=== PATIENT | male | born 1940 | race Caucasian/White ===

== ENCOUNTER 2016-10-17 15:48 | Inpatient (IN) | payer MEDICARE, BC ==
[~2016-10-17] VITALS: Ht 172.7 cm; Wt 80.1 kg
--- NOTE | ~2016-10-17 | OP ---
PATIENT NAME: JACKELINE GARZA MEDICAL RECORD: [id number] :40 LOCATION:D.M2 D.2126 ADMISSION DATE:10/17/16 SURGEON: GER SALAZAR MD DATE OF OPERATION: 11/01/2016 PREOPERATIVE DIAGNOSES: 1. Yxmrx-hn-hondqkc kidney disease. 2. Chronic obstructive pulmonary disease. 3. Hyperlipidemia. 4. Hypertension. 5. Benign prostatic hypertrophy. 6. Post-stroke pneumonia. 7. Congestive heart failure, undifferentiated. POSTOPERATIVE DIAGNOSES: 1. Iohbc-ef-mqqmemo kidney disease. 2. Chronic obstructive pulmonary disease. 3. Hyperlipidemia. 4. Hypertension. 5. Benign prostatic hypertrophy. 6. Post-stroke pneumonia. 7. Congestive heart failure, undifferentiated. PROCEDURES: 1. Right IJ 19 cm HemoSplit catheter placement with fluoroscopic interpretation. 2. Exchange of left IJ Trialysis catheter for central venous line. SURGEON: Ger Salazar MD REPORT OF PROCEDURE: The patient's neck and chest were prepped and draped in sterile fashion. Using ultrasound guidance, a needle was used to cannulate the right internal jugular vein. The guidewire was advanced with ease. Fluoro was used to note that the wire was in good position in the venous system. A skin incision was made on the right lateral chest. The HemoSplit catheter was tunneled between this opening and the wire exit site. The multiple dilators were placed over the wire under fluoroscopic guidance followed by the final dilator trocar device. The dilator and wire were removed and the catheter tips were advanced through the trocar with ease. The trocar was removed and we backed the catheter up until resting in good position at the right atrial superior vena caval junction. The catheter aspirated nonpulsatile dark blood and flushed easily in both ports with heparinized saline followed by 2 mL each of 1000 per cc heparin flush. This was then sutured into place with 3-0 Prolene and the skin incisions were closed with subcutaneous 5-0 Monocryl. We then approached the left neck with indwelling Trialysis catheter. The sutures were removed and the distal aspect of the catheter was transected. A guidewire was advanced with ease through this and the catheter was removed. A new central venous line was inserted over the wire and the wire was removed. This line was flush with normal saline and had good blood return and flushed easily with heparinized saline. This was then sutured into place with a 3-0 Prolene and dressed appropriately. COMPLICATIONS: None. CONDITION: Stable. OPERATIVE REPORT [id number] JACKELINE GARZA ANESTHESIA: General endotracheal. BLOOD LOSS: 30 mL. TRANSINT:[id number] Voice Confirmation ID: [id number] DOCUMENT ID: [id number] GER SALAZAR MD CC: [id number] DICTATION DATE: 11/01/16 1148 HOME CARE ADMINISTRATOR: 11/01/16 190 ADM IN [id number] [place] [address]
--- NOTE | ~2016-10-17 | CN ---
PATIENT NAME:JACKELINE TOMLINSON MEDICAL RECORD: [id number] : 40 LOCATION:D.[place] D.2126 ADMIT DATE: 10/17/16 ACCOUNT: [id number] CONSULTING PHYSICIAN: SEN GAMEZ MD REFERRING PHYSICIAN: GREGORIO LOBATO MD DATE OF CONSULTATION: 10/18/2016 CONSULT REQUESTING PHYSICIAN: Gregorio Lobato MD. REASON FOR CONSULTATION: Shortness of breath. HISTORY OF PRESENT ILLNESS: Mr. Tomlinson is a 76-year-old gentleman who was transferred from [facility] for worsening shortness of breath and renal failure. According to the , he was admitted over there for worsening shortness of breath. Workup showed that he is in qcjhd-as-tbvukxs renal failure as well as his hemoglobin was 5.2. He was transfused with 2 units of blood and also, some diuresis, but the patient was not getting any better. Also, he has worsening shortness of breath. He has orthopnea, PND and worsening swelling of the lower extremities. He was also given a dose of vancomycin and Zosyn. Methylprednisolone 125 mg IV times 1. REVIEW OF SYSTEMS: Mainly in the history of present illness. PAST MEDICAL HISTORY: 1. Hypertension. 2. Hyperlipidemia. 3. Stage III chronic kidney disease. 4. History of CVA with memory loss. 5. History of glaucoma. 6. Legally blind. 7. Depression. 8. Iron deficiency anemia. 9. History of bleeding polyps. PAST SURGICAL HISTORY: 1. History of right carotid endarterectomy. 2. Left eye retinal surgery. ALLERGIES: There are no known drug allergies. PRESENT MEDICATIONS: [employer] Communication is reviewed. PERSONAL AND SOCIAL HISTORY: The patient was an active smoker until June this year. He is , living with his . He is alcohol drinking. FAMILY HISTORY: Noncontributory. PHYSICAL EXAMINATION: GENERAL: Now, the patient is lying comfortably, but he is in mild respiratory distress. VITAL SIGNS: The blood pressure is 143/67, pulse is 59, respirations 18, temperature 98.8 and SPO2 is 97% on 3 liter nasal cannula. HEENT: Conjunctivae are pink, sclerae nonicteric. NECK: Supple. No JVD. CHEST: The chest excursion is minimal on both sides. There are bilateral CONSULT REPORT [id number] JACKELINE TOMLINSON crackles, wheeze on forceful expiration. HEART: Rate and rhythm regular. There is a II/ systolic murmur. ABDOMEN: Soft. Bowel sounds present. No hepatosplenomegaly. RECTAL: Deferred. EXTREMITIES: No cyanosis, no clubbing. There is 3+ pedal edema. CENTRAL NERVOUS SYSTEM: The patient is legally blind; otherwise, he is awake and alert. CHEST RADIOGRAPH: There is bilateral pleural effusion. There is pulmonary edema. There is lower lobe infiltrate, left worse than the right. LABORATORY DATA: CBC: The WBC is 18.9, hemoglobin 9.3, hematocrit 28.7, the platelet count is 348. Chemistry: Sodium is 127, potassium is 5, BUN is 76 and creatinine is 4.3. IMPRESSION: 1. Acute hypoxic respiratory failure. 2. Left lower pneumonia, possible community-acquired pneumonia. 3. Bilateral pleural effusion. 4. Pulmonary edema, most likely congestive heart failure, possible fluid overload with associated anemia and cywpk-qw-gpwyftq renal failure. 5. Paeve-rw-quozckh renal failure secondary to acute tubular necrosis. 6. Chronic obstructive pulmonary disease, acute exacerbation. 7. Lower gastrointestinal bleed. 8. Anemia secondary to gastrointestinal bleed. RECOMMENDATION: 1. I will start him on Rocephin and Zithromax IV. 2. Methylprednisolone low dose 40 mg t.i.d. Continue Brovana and budesonide nebulizer, albuterol and ipratropium nebulizer. 3. Follow up labs and chest radiograph. 4. Diuresis per nephrology as well as Dr. Hernandes. Congestive heart failure workup by Dr. Hernandes. Dr. Lobato, once again thank you for involving me in the care of Mr. Tomlinson. The critical care time is 45 minutes. TRANSINT:[id number] Voice Confirmation ID: [id number] DOCUMENT ID: [id number] SEN GAMEZ MD CC: GREGORIO LOBATO MD [id number] DICTATION DATE: 10/18/16 135 URINALYSIS TECHNICIAN: 10/18/162205 ADM IN [id number] [place] [id number]
[~2016-10-17 15:48] MED LIST: ASPIRIN EC81 MG PO; BENTYL10 MG PO; CELEXA20 MG PO; HYDROCHLOROTHIA25 MG PO; NORVASC5 MG PO; PEPCID AC20 MG PO; PERSERVISION; PLAVIX75 MG PO; REFRESH OPTIVE; TIMOLOL MALEATE15 ML EACH EYE; TOPROL XL25 MG PO; ZOCOR10 MG PO; [UNRECOGNIZED DRUG - OTHER]
--- NOTE | 2016-10-17 16:00 | NUR ---
RECIVED TO ROOM PER AMBULANCE FROM [facility].
[2016-10-17] MEDS ORDERED: COSOPT EYE DROPS5 ML RIGHT EYE (16:04)
[2016-10-17] MEDS ORDERED: IPRAT-ALBUT 0.5-3 ML UPD ×2 (16:05→16:08)
[2016-10-17] MEDS ORDERED: SYMBICORT 80-10.2 GM INH (16:05)
[2016-10-17] MEDS ORDERED: XANAX0.25 MG PO (16:06)
[2016-10-17] MEDS ORDERED: SOLU-MEDRO40 MG/1 M1 IV (16:06)
[2016-10-17] MEDS ORDERED: COREG12.5 MG PO (16:07)
[2016-10-17] MEDS ORDERED: PROTONIX40 MG PO (16:08)
[2016-10-17] MEDS ORDERED: MAXIFED DM LIQ473 ML PO (16:08)
[2016-10-17] MEDS ORDERED: VANCOMYCIN HCL125 MG PO (16:12)
[2016-10-17] MEDS ORDERED: ZITHROMAX 500M500 MG IV (16:12)
[2016-10-17] MEDS ORDERED: ZOSYN 2.25 GM2.25 G1 IV (16:12)
[2016-10-17 16:26] VITALS: BP 157/67
[2016-10-17 16:40] VITALS: BMI 27.1
--- NOTE | 2016-10-17 17:42 | NUR ---
FAMILY AT SIDE. WITHOUT CHANGES OR DISTRESS NOTED
[2016-10-17 18:41] LABS: BASOPHILS 0.1 % (0-2); EOSINOPHILS 0 % (0-7); HEMATOCRIT 28.5 % (42.0-54.0); HEMOGLOBIN 9.2 g/dL (13.5-17.5); IMMATURE GRANULOCYTES 0.4 % (0-5); LYMPHOCYTES 6.2 % (15-50); MCH 25.7 pg (26.0-34.0); MCHC 32.3 g/dL (31.0-37.0); MCV 79.6 fL (80.0-100.0); MEAN PLATELET VOLUME 9.9 fL (7.4-10.4); MONOCYTES 2.7 % (2-11); NEUTROPHILS 90.6 % (40-80); PLATELET COUNT 335 10x3/uL (130-400); RBC 3.58 10x6/uL (4.20-6.10); WBC 12.8 10x3/uL (4.8-10.8)
[2016-10-17 18:46] LABS: ANION GAP 20.2 mmol/L (8-16); CALCIUM 8.5 mg/dL (8.5-10.1); CARBON DIOXIDE 17.8 mmol/L (21.0-32.0); CREATININE - SERUM 4.3 mg/dL (0.6-1.3)
[2016-10-17 19:00] VITALS: BP 152/66
--- NOTE | 2016-10-17 19:20 | NUR ---
RECEIVED REPORT FROM DAY NURSE, AT BEDSIDE, BED IS LOW, SRX2, PT DENIES ANY NEEDS AT THIS TIME, WILL CONTINUE TO MONITOR, CALL LIGHT IN REACH
[2016-10-17 23:00] VITALS: BP 156/67
--- NOTE | 2016-10-18 04:35 | NUR ---
ASSESSMENT COMPLETE, SEE FLOWSHEET, PT SLEEPING, AT BEDSIDE, BED IS LOW, SRX2, CALL LIGHT IN REACH, WILL MONITOR
--- NOTE | 2016-10-18 05:37 | NUR ---
WILL CONTINUE WITH PLAN OF CARE, CALL LIGHT IN REACH.
[2016-10-18 05:44] LABS: BASOPHILS 0.1 % (0-2); EOSINOPHILS 0 % (0-7); HEMATOCRIT 28.7 % (42.0-54.0); HEMOGLOBIN 9.3 g/dL (13.5-17.5); IMMATURE GRANULOCYTES 0.5 % (0-5); LYMPHOCYTES 4.5 % (15-50); MCH 25.5 pg (26.0-34.0); MCHC 32.4 g/dL (31.0-37.0); MCV 78.8 fL (80.0-100.0); MEAN PLATELET VOLUME 9.8 fL (7.4-10.4); MONOCYTES 4.3 % (2-11); NEUTROPHILS 90.6 % (40-80); PLATELET COUNT 348 10x3/uL (130-400); RBC 3.64 10x6/uL (4.20-6.10); RDW 21.5 % (11.5-14.5)
[2016-10-18 05:48] LABS: APPEARANCE HAZY (CLEAR); BILIRUBIN NEGATIVE (NEGATIVE); COLOR YELLOW (YELLOW); GLUCOSE NEGATIVE (NEGATIVE); KETONE NEGATIVE (NEGATIVE); LEUKOCYTE ESTERASE NEGATIVE (NEGATIVE); NITRITE NEGATIVE (NEGATIVE); PROTEIN 1+ mg/dL (NEGATIVE); RED CELLS - URINE 0-5 /hpf (0-5); UROBILINOGEN NORMAL (NORMAL); WHITE CELLS - URINE 0-5 /hpf (0-5)
[2016-10-18 05:48] LABS: WBC 18.9 10x3/uL (4.8-10.8)
[2016-10-18 05:49] LABS: BACTERIA NONE SEEN /hpf (NONE SEEN); EPITHELIAL CELLS RARE /hpf (0-5)
[2016-10-18 05:54] LABS: POTASSIUM - URINE 42.6 MMOL/L (12.0-62.0); PRO/CRE RATIO URINE 1.9 mg/g; PROTEIN - URINE 130.1 mg/dL (0.0-11.9)
[2016-10-18 06:05] LABS: % SATURATION 2 % (15-55); IRON 10 ug/dl (35-150); TOTAL IRON BIND CAPACITY 372 ug/dl (260-445); UNSAT IRON BIND CAPACITY 362 ug/dl (150-375)
[2016-10-18 06:24] LABS: ANION GAP 19.5 mmol/L (8-16); CALCIUM 8.4 mg/dL (8.5-10.1); CARBON DIOXIDE 17.6 mmol/L (21.0-32.0); CREATININE - SERUM 4.6 mg/dL (0.6-1.3); MAGNESIUM - SERUM 2.3 mg/dL (1.8-2.4); PHOSPHOROUS 8.4 mg/dL (2.5-4.9); POTASSIUM - SERUM 5.1 mmol/L (3.5-5.1); T4 THYROXIN - FREE 0.97 ng/dL (0.76-1.46); THYROID STIMULATING HORMONE 0.75 uIU/mL (0.36-3.74)
[2016-10-18 06:42] VITALS: BP 158/68
--- NOTE | 2016-10-18 07:36 | HP ---
PATIENT: JACKELINE GARZA MEDICAL RECORD: [id number] ACCOUNT: [id number] LOCATION:[address] : 40 ADMISSION DATE: 10/17/16 HISTORY AND PHYSICAL EXAMINATION REASON FOR ADMISSION: Transfer from [facility] for acute renal insufficiency, anemia, symptomatic, and congestive heart failure. HISTORY OF PRESENT ILLNESS: The patient is a 76-year-old male whose states was in fairly good health until June. He was apparently admitted to [facility] at that time for what appear to be COPD and some "heart problems." She has little information on that except that he was placed on updrafts at home after that. He has seen his doctor, Dr. Antonio, recently and was noted to be anemic and had heme-positive stool. He was referred to general surgeon, Dr. Cheatham, who performed an EGD approximately a month ago at that hospital showing "several reasons for bleeding." He was placed on a PPI and Carafate 4 times daily. He was scheduled to have a repeat endoscopy. Stools remained positive and he apparently was admitted to the hospital because his hemoglobin had dropped to 5.2. He was admitted and transfused 3 units of packed cells, but developed some volume overload. The referring physician states that his BNP had elevated to 30,000. He was giving him Lasix and Bumex. His creatinine went from 1.8 up to 3.3, which resulted in his transfer today. He was also put on vancomycin and Zosyn for questionable pneumonia and IV Solu-Medrol for COPD exacerbation, but he has been wheezing worse. His blood gas showed a pH of 7.3 and a pO2 in the mid 60s on 2 liters. His said he has never had a colonoscopy. He denies chest pain. He denies sputum production. PAST MEDICAL HISTORY: Stroke times 3 with carotid occlusive disease, post-stroke dementia, macular degeneration, legally blind on his left eye with minimal vision in his right eye, history of cataracts, glaucoma, COPD, recently diagnosed; recent acute renal insufficiency, hyperlipidemia and hypertension. PAST SURGICAL HISTORY: He had surgery on his left eye for macular degeneration that resulted in him becoming blind. He had a right carotid endarterectomy remotely, but his left carotid was so stenosed they would not operate and placed him on Plavix. ALLERGIES: None mentioned. SOCIAL HISTORY: He is to his second . 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 He does not drink alcohol. FAMILY HISTORY: Parents history unknown, they of old age. One brother had cancer of the lung, he was a smoker. CURRENT MEDICATIONS: Amlodipine 10 mg a day, dorzolamide hydrochloride/timolol 2%/0.5% one drop right eye b.i.d., Symbicort 80 two puffs b.i.d., DuoNeb updrafts 4 times daily, methylprednisolone ____ mg IV piggyback q.8 hours, Xanax 0.25 mg bedtime p.r.n. sleep, Coreg 12.5 mg b.i.d. with meals, guaifenesin cough syrup p.r.n., Protonix 40 mg p.o. daily, vancomycin 125 mg p.o. daily, Zosyn 2.25 mg IV piggyback q.8 hours, Zithromax 500 mg IV piggyback q.24 hours, timolol maleate 0.25% ophthalmic drops 1 drop each eye b.i.d. Discontinued medications were simvastatin, metoprolol, Plavix, famotidine, HISTORY AND PHYSICAL [id number] JACKELINE GARZA hydrochlorothiazide, aspirin, citalopram and Bentyl. REVIEW OF SYSTEMS: GENERAL: He has been fatigued since being in the hospital and several weeks prior to. He denies fever. HEENT: Legally blind left eye, poor vision in the right, he can see objects only. Denies sinus congestion. Some hearing loss. RESPIRATORY: Increasing shortness of breath with nonproductive cough in the last week. CARDIAC: Denies chest pain, claudication. He does have increasing edema noted in the hospital recently. Prior to hospitalization, he said he did not have that. GASTROINTESTINAL: No nausea, vomiting, change in stools, blood per rectum, or dysphagia. GENITOURINARY: He says he has had nocturia 2-3 nightly for the last several months. Denies history of hematuria or kidney disease. ENDOCRINE: Denies polyuria, polydipsia, heat or cold intolerance. NEUROLOGIC: Remote history of stroke, which caused him to have trouble with memory, but no motor deficits. MUSCULOSKELETAL: He has some arthritis in his shoulders and hips. PSYCHIATRIC: Denies depressed mood, but has been depressed in the past. LABORATORY DATA: [place] labs are currently pending. Reported lab today from [facility] showed a creatinine of 3.3, BUN of 60 and hemoglobin of 9. Chest x-ray showed mild central, peripheral pulmonary edema with patchy alveolar densities in the lower lobes, small pleural effusions and COPD changes. Sodium was 128. Liver functions were normal. Lactic acid 1.9. ProBNP reportedly 30,000. Urinalysis negative. Blood type A positive. ASSESSMENT: 1. Congestive heart failure. 2. Acute renal insufficiency. 3. Anemia of upper gastrointestinal blood loss. 4. Possible pneumonia. 5. Respiratory failure. 6. Hypertension. 7. Benign prostatic hypertrophy. 8. Macular degeneration. 9. Carotid occlusive disease. 10. Remote cerebrovascular accident. PLAN: The patient will be admitted to the hospital for renal consultation. We will get new database, labs and chest x-ray. Apparently, the patient has had an echocardiogram done yesterday at [facility], hope to obtain that reading and if not, we will repeat here. Cardiology has been consulted as well. TRANSINT:[id number] Voice Confirmation ID: [id number] DOCUMENT ID: [id number] HISTORY AND PHYSICAL [id number] JACKELINE GARZA TIMOTHY MD at 0736 CC: [id number] DICTATION DATE: 10/17/161757 INSOLE FILLER: 10/17/162052 ADM IN [facility] [address] [place] [address]
--- NOTE | 2016-10-18 07:47 | NUR ---
AM ROUNDING- RECEIVED REPORT FROM LEGAL MEDIATOR NURSE JERZY. PT IS CURRENTLY SITTING UP ON SIDE OF BED RECEIVING BREATHING TREATMENT. IS AT BEDSIDE. ON MONITOR SHOWING SR, HR 80. ON 02 AT 3L VIA NC. IV SEEN TO LEFT HAND THAT IS CURRENTLY SALINE LOCKED. AARON CATHETER SEEN WITH YELLOW URINE. PER REPORT PT IS BLIND IN LEFT EYE AND CANNOT SEE IN RIGHT EYE. PT IS ALERT AND ORIENTED. NO NEED AT CURRENT TIME. WILL CONTINUE TO MONITOR AND CONTINUE WITH PLAN OF CARE.
[2016-10-18 07:56] VITALS: BP 162/77
[2016-10-18 11:59] VITALS: Ht 172.7 cm; Wt 80.1 kg
[2016-10-18 12:38] VITALS: BP 143/67
[2016-10-18 15:42] VITALS: BP 143/71
--- NOTE | 2016-10-18 17:20 | NUR ---
PT IS GLEN SITTING UP ON SIDE OF BED SPEAKING WITH DR. WU. IS AT BEDSIDE. NO NEED AT CURRENT TIME. WILL CONTINUE TO MONITOR.
--- NOTE | 2016-10-18 17:41 | NUR ---
BUMEX DRIP STARTED ORDERED BY DR. WU.
--- NOTE | 2016-10-18 18:06 | NUR ---
REMOVED AARON CATHETER WITH CATH TIP INTACT, PULLED OUT 8CC OUT OF BALLOON SYRINGE. ATTEMPTED TO RE-INSERT AARON CATHETER X2 TIMES WITH ASSISTANCE FROM DARSHAN VICK AND SUMAYA OLEARY. WILL CALL AND SEE ABOUT GETTING COUDE CATHETER. PT STATES HE NEEDS TO USE BATHROOM NOW. WILL CONTINUE TO MONITOR.
--- NOTE | 2016-10-18 18:13 | NUR ---
CALLED BILINGUAL EXECUTIVE ASSISTANT AND SPOKE YAMIL. INFORMED YAMIL THAT I NEEDED COUDE CATHETER 14F. YAMIL STATES SHE WILL SEE IF SHE CAN FIND ONE.
--- NOTE | 2016-10-18 19:04 | NUR ---
DID BLADDER SCAN ON PT AND BLADDER SCAN RESULTED WITH NO URINE IN BLADDER (0ML). WILL CONTINUE TO MONITOR.
--- NOTE | 2016-10-18 19:09 | NUR ---
DID BLADDER SCAN ON PT AND BLADDER SCAN SHOWS PT HAS 0ML.
--- NOTE | 2016-10-18 19:41 | NUR ---
RECEIVED REPORT, PT SITTING ON SIDE OF BED, AT BEDSIDE, CALL LIGHT IN REACH, ASK PT ABOUT AARON HE SAID WILL TRY AGAIN LATER, EXPLAIN THE IMPORTANT OF AARON, HE WILL USE URINAL UNTIL AARON IS PLACED
[2016-10-18 20:21] VITALS: BP 137/65
--- NOTE | 2016-10-18 23:55 | NUR ---
18F AARON CATHETER INSERTED AT THIS TIME. PT TOLERATED WELL. NOW BACK AT BEDSIDE. URINE OUTPUT WAS CLEAR YELLOW WITH INITIAL OUTPUT OF 100CC'S. CPOC/MONITORING OUTPUT.
[2016-10-19 00:28] VITALS: BP 163/82
[2016-10-19 04:13] VITALS: BP 143/68
--- NOTE | 2016-10-19 04:30 | NUR ---
ASSESSMENT COMPLETE, SEE FLOWSHEET, AT BEDSIDE, CALL LIGHT IN REACH, WILL CONTINUE PLAN OF CARE
[2016-10-19 05:58] LABS: BASOPHILS 0 % (0-2); EOSINOPHILS 0 % (0-7); HEMATOCRIT 28.6 % (42.0-54.0); HEMOGLOBIN 9.2 g/dL (13.5-17.5); IMMATURE GRANULOCYTES 0.4 % (0-5); LYMPHOCYTES 2.3 % (15-50); MCH 25.5 pg (26.0-34.0); MCHC 32.2 g/dL (31.0-37.0); MCV 79.2 fL (80.0-100.0); MEAN PLATELET VOLUME 10.4 fL (7.4-10.4); MONOCYTES 1.4 % (2-11); NEUTROPHILS 95.9 % (40-80); PLATELET COUNT 344 10x3/uL (130-400); RBC 3.61 10x6/uL (4.20-6.10); WBC 17.4 10x3/uL (4.8-10.8)
[2016-10-19 06:16] LABS: ANION GAP 23.5 mmol/L (8-16); CALCIUM 8.4 mg/dL (8.5-10.1); CARBON DIOXIDE 14.1 mmol/L (21.0-32.0); POTASSIUM - SERUM 5.6 mmol/L (3.5-5.1)
--- NOTE | 2016-10-19 07:28 | NUR ---
AM ROUNDING- RECEIVED REPORT FROM DIE CAST DIE MAKER NURSE JERZY. PT IS CURRENTLY LAYING IN BED ON BACK RECEIVING A BREATHING TX. IS AT BEDSIDE. ON MONITOR SHOWING SR, HR 88. ON 02 AT 3L VIA NC. IV SEEN TO RIGHT AC THAT HAS BUMEX RUNNING AT 10CC. PT IS BLIND IN LEFT EYE AND HAS POOR EYESIGHT IN RIGHT EYE. NO NEED AT CURRENT TIME. WILL CONTINUE TO MONITOR AND CONTINUE WITH PLAN OF CARE.
[2016-10-19 08:36] VITALS: BP 142/64
[2016-10-19 11:28] VITALS: BP 147/72
--- NOTE | 2016-10-19 13:07 | NUR ---
CALLED PHARMACY TO SEE ABOUT BUMEX BEING COMPATIBLE WITH ZITHROMAX. LIZANDRO FROM PHARMACY STATES THEY ARE COMPATIBLE.
--- NOTE | 2016-10-19 15:07 | NUR ---
PT IS RESTING IN BED. AND GUEST AT BEDSIDE. PT DENIES ANY NEED AT CURRENT TIME. WILL CONTINUE TO MONITOR.
[2016-10-19 17:04] VITALS: BP 144/62
--- NOTE | 2016-10-19 17:32 | NUR ---
PT IS CURRENTLY SITTING UP ON SIDE OF BED. ASKED PT IF HE ATE DINNER, PT REPLIED "NO I WASN'T HUNGRY". IS AT BEDSIDE. NO NEED AT CURRENT TIME. WILL CONTINUE TO MONITOR.
[2016-10-19 17:52] LABS: CALCIUM 8.2 mg/dL (8.5-10.1); CARBON DIOXIDE 15.4 mmol/L (21.0-32.0); CREATININE - SERUM 6.6 mg/dL (0.6-1.3); POTASSIUM - SERUM 5.4 mmol/L (3.5-5.1)
--- NOTE | 2016-10-19 19:44 | NUR ---
RESUMED CARE OF PT, PT LYING IN BED, DENIES ANY NEEDS, AT BEDSIDE, CALL LIGHT IN REACH, BED IS LOW, SRX2, WILL CONTINUE CARE OF PLAN
[2016-10-19 20:32] VITALS: BP 148/55
--- NOTE | 2016-10-20 00:19 | NUR ---
PHONE BANKER AT BED SIDE TO OBTAIN VITALS. WILL CONT PLAN OF CARE.
[2016-10-20 00:36] VITALS: BP 146/68
--- NOTE | 2016-10-20 03:05 | NUR ---
ASSESSMENT COMPLETE, SEE FLOWSHEET, AT BEDSIDE, CALL LIGHT IN REACH, CONTINUE PLAN OF CARE
[2016-10-20 04:30] VITALS: BP 150/51
[2016-10-20 06:22] LABS: BASOPHILS 0 % (0-2); EOSINOPHILS 0 % (0-7); HEMATOCRIT 27.7 % (42.0-54.0); HEMOGLOBIN 8.9 g/dL (13.5-17.5); IMMATURE GRANULOCYTES 0.6 % (0-5); LYMPHOCYTES 3.4 % (15-50); MCH 25.3 pg (26.0-34.0); MCHC 32.1 g/dL (31.0-37.0); MCV 78.7 fL (80.0-100.0); MEAN PLATELET VOLUME 10.2 fL (7.4-10.4); PLATELET COUNT 300 10x3/uL (130-400); RBC 3.52 10x6/uL (4.20-6.10); WBC 11.9 10x3/uL (4.8-10.8)
[2016-10-20 06:46] LABS: ANION GAP 24.2 mmol/L (8-16); CALCIUM 8.2 mg/dL (8.5-10.1); CARBON DIOXIDE 15.1 mmol/L (21.0-32.0); CREATININE - SERUM 7.1 mg/dL (0.6-1.3); MAGNESIUM - SERUM 2.6 mg/dL (1.8-2.4); POTASSIUM - SERUM 5.3 mmol/L (3.5-5.1)
[2016-10-20 06:51] LABS: PHOSPHOROUS 11.3 mg/dL (2.5-4.9)
--- NOTE | 2016-10-20 07:49 | NUR ---
assessment COMPLETED. TELEMERTY SHOWS SR WITH BBB AT A RATE OF 89. O2 AT 3 L/M PER NC. PT IS BLIND IN THE RIGHT EYE AND HAS POOR VISION IN LEFT EYE. RIGHT AC IV WITH BUMEX AT 10. FAMILY AT BEDSIDE
[2016-10-20 08:05] VITALS: BP 169/69
--- NOTE | 2016-10-20 10:14 | CN ---
PATIENT NAME:JACKELINE GARZA MEDICAL RECORD: [id number] : 40 LOCATION:DGustavo D.2126 ADMIT DATE: 10/17/16 ACCOUNT: [id number] CONSULTING PHYSICIAN: LESIA VANCE MD REFERRING PHYSICIAN: LETTY COCHRAN MD DATE OF CONSULTATION: 10/18/2016 HISTORY OF PRESENT ILLNESS: This is a 76-year-old gentleman transferred from [facility] with a history of obstructive pulmonary disease, quit smoking in June of this year, admitted with volume overload and black tarry stools, found to have a hemoglobin of 5.2. He was transfused with red cells. Creatinine elevated to ____at this point. He received multiple doses of IV diuretics in addition to blood products. He is still quite dyspneic. We are asked to see him concerning his cardiovascular status. PAST MEDICAL HISTORY: Includes: 1. History of hypertension. 2. Cerebrovascular disease. 3. Obstructive pulmonary disease. 4. Hypertension. 5. Hyperlipidemia. 6. Gastroesophageal reflux disease. ALLERGIES: None known. SOCIAL HISTORY: , lives in [place]. Quit smoking back in ____. He had trouble with ADLs, both from a pulmonic standpoint and has macular degeneration. REVIEW OF SYSTEMS: The patient reports easy bruising but reports no swollen glands. The patient reports no fever, no night sweats, no significant weight gain, no significant weight loss. No significant exercise tolerance. The patient reports no dry eyes, no irritation, no vision change. Patient reports no difficulty hearing and no ear pain. Patient reports no frequent nose bleeds or nose and sinus problems. Patient reports on arm pain on exertion. No shortness of breath while lying down. No history of heart murmur. Patient reports no cough, no wheezing or coughing up blood. Patient reports no abdominal pain, no vomiting. Normal appetite. No diarrhea and not vomiting blood. No nausea and no constipation. Patient reports no incontinence. No difficulty urinating. No hematuria. No increased frequency. Patient reports no muscle aches. No weakness, no arthralgias, no back pain. No swelling of the extremities. Patient reports no abnormal mole, no jaundice, no rashes. Reports no loss of consciousness. No weakness and no numbness. No seizures, dizziness, or headaches. The patient reports no depression, no sleep disturbance, feeling safe in a relationship and no alcohol abuse. Patient reports on fatigue. Reports no runny nose or sinus pressure. No itching, no hives, and no frequent sneezing. PHYSICAL EXAMINATION: GENERAL: Elderly gentleman in no acute distress, mildly dyspneic. VITAL SIGNS: Blood pressure 160/77 and pulse 67 and regular. HEENT: Normocephalic and atraumatic. NECK: No bruits noted. HEART: Regular, II/ systolic ejection murmur. LUNGS: Diminished air excursion with inspiratory and expiratory wheezes. CONSULT REPORT [id number] JACKELINE GARZA ABDOMEN: Soft, nontender. EXTREMITIES: Pulses are decreased 1+ with no edema. IMPRESSION: Certainly, may be a component of high output heart failure here with marked anemia. We will check an echocardiographic study, doubt a significant atherosclerotic disease given ability to tolerate hemoglobin at this level without circulatory collapse. Further recommendations based on above. TRANSINT:[id number] Voice Confirmation ID: [id number] DOCUMENT ID: [id number] LESIA VANCE MD at 1014 CC: [id number] DICTATION DATE: 10/18/16 0848 PULVERIZER: 10/18/16 1824 ADM IN [facility] [address] [id number]
--- NOTE | 2016-10-20 12:09 | NUR ---
TRILYSIS PLACED PER DR CUNNINGHAM.
--- NOTE | 2016-10-20 12:22 | NUR ---
RESTING QUIETLY RESP SOB AT TIMES AT BEDSIDE
--- NOTE | 2016-10-20 13:50 | NUR ---
Patient Name: JACKELINE GARZA Admission Status: Urgent Accout number: [id number] Admission Date: 10-17-2016 : 1940 Admission Diagnosis:HEART FAILURE, UNSPECIFIED Attending: JESSICA Current LOS: 3 Anticipated DC Date: 10-22-2016 Planned Disposition: Nursing Facility HANS Cert Primary Insurance: MEDICARE A & B Discharge Planning Comments: Cm met with patient and spouse to complete initial discharge planning assessment. Spouse gave consent to complete assessment. Patient lives at home with her in a one story home with one step to enter the home. Patient is legally blind and requires assistance with cooking, cleaning, medications, and transportation. Spouse is not sure if patient will be able to go home without rehab first. She stated if he needed rehab she would want him to go to the one in [place]. She cant remember the name but will find out. He has O2 at home but has had to begin wearing 24/7 prior to admission. He does not have portable. If portable is needed for dc his Oxygen provider is [facility]. CM will continue to follow and assist with dc plan/needs. Lead Software Test Engineer: Natacha Vides RN, [facility] [phone] Is the patient Alert and Oriented? Yes * How many steps to enter\exit or inside your home? 1 * PCP Dr. Antonio in [place] * Pharmacy [facility] in [place] * Preadmission Environment Home with Family * ADLs Partial Dependent * Partial ADLs (Assistance needed) Medication Management * Equipment Nebulizer Oxygen * List name and contact numbers for known caregivers / representatives who currently or will assist patient after discharge: Dominique Escobar - spouse - [phone] * Community resources currently utilized Meals on Wheels * Additional services required to return to the preadmission environment? Yes * Has this patient been hospitalized within the prior 30 days at any hospital? No
--- NOTE | 2016-10-20 14:42 | NUR ---
TO DIALYSIS PER BED
--- NOTE | 2016-10-20 18:11 | NUR ---
UP IN BEDSIDE CHAIR. DENIES ANY NEEDS. TELEMETRY SHOWS SR.
[2016-10-20 19:00] VITALS: BP 126/52
--- NOTE | 2016-10-20 19:48 | NUR ---
RESUMED CARE OF PT, PT SLEEPING, 02-3L, [id number], [id number], BED IS LOW, SRX2, AARON DRAINING, CALL LIGHT IN REACH, AT BEDSIDE, WILL CONTINUE WITH CARE OF PLAN
--- NOTE | 2016-10-20 21:39 | OP ---
PATIENT NAME: JACKELINE GARZA MEDICAL RECORD: [id number] :40 LOCATION:D.M2 D.6 ADMISSION DATE:10/17/16 SURGEON: RAULITO CUNNINGHAM MD DATE OF OPERATION: 10/20/2016 SURGEON: Raulito Cunningham MD PREOPERATIVE DIAGNOSIS: Acute renal failure, requiring hemodialysis. POSTOPERATIVE DIAGNOSIS: Acute renal failure, requiring hemodialysis. PROCEDURE PERFORMED: Ultrasound-guided left internal jugular vein, Trialysis catheter placement. ANESTHESIA: Local. COMPLICATIONS: None. Case was clean. ESTIMATED BLOOD LOSS: 10 cc. OPERATIVE COURSE: After consent was obtained, the patient was placed in the supine position in his hospital bed. The bed was then placed into Trendelenburg position. A timeout was taken to confirm the correct patient and procedure. The left chest and neck were prepped and draped in the typical sterile fashion. A 15 cc of local anesthetic were injected into the left internal jugular vein and left common carotid artery was identified under ultrasound. Under ultra sound guidance, left internal jugular vein was cannulated. A wire was placed, the needle was removed. The skin was incised with an 11-blade scalpel. The dilators were then passed over the wire in a standard Seldinger fashion. The Trialysis catheter was advanced over the wire in a standard Seldinger fashion. The wire was removed. The catheter was secured to the skin using 2-0 nylon suture. A sterile Tegaderm dressing was placed. All 3 ports were aspirated and flushed. At the end of the case, all needle and instrument counts were correct. No complications occurred. The patient tolerated the procedure well. A post-procedure chest x-ray was ordered to confirm the placement of line. 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
[2016-10-20 23:56] VITALS: BP 132/57
--- NOTE | 2016-10-21 00:30 | NUR ---
FUNDRAISING MANAGER AT BEDSIDE FOR VS. NEEDS ADDRESSED, CALL LIGHT IN REACH. WILL CONT TO MONITOR.
--- NOTE | 2016-10-21 02:43 | NUR ---
ASSESSMENT COMPLETE, PT SLEEPING, AT BEDSIDE, BED IS LOW, SRX2, WILL CONTINUE PLAN OF CARE
[2016-10-21 06:05] VITALS: BP 148/53
[2016-10-21 06:23] LABS: BASOPHILS 0 % (0-2); EOSINOPHILS 0 % (0-7); HEMATOCRIT 28.6 % (42.0-54.0); HEMOGLOBIN 9.3 g/dL (13.5-17.5); IMMATURE GRANULOCYTES 0.5 % (0-5); LYMPHOCYTES 1.9 % (15-50); MCH 25.5 pg (26.0-34.0); MCHC 32.5 g/dL (31.0-37.0); MCV 78.4 fL (80.0-100.0); MEAN PLATELET VOLUME 10.1 fL (7.4-10.4); MONOCYTES 3.6 % (2-11); PLATELET COUNT 259 10x3/uL (130-400); RBC 3.65 10x6/uL (4.20-6.10); WBC 12.3 10x3/uL (4.8-10.8)
[2016-10-21 06:41] LABS: ANION GAP 21.3 mmol/L (8-16); CALCIUM 7.9 mg/dL (8.5-10.1); CREATININE - SERUM 6.9 mg/dL (0.6-1.3); POTASSIUM - SERUM 5.2 mmol/L (3.5-5.1)
[2016-10-21 06:42] LABS: CARBON DIOXIDE 19.9 mmol/L (21.0-32.0)
--- NOTE | 2016-10-21 07:47 | NUR ---
ASSESSMENT DONE. DENIES NEEDS. AT SIDE.
[2016-10-21 08:40] VITALS: BP 163/67
--- NOTE | 2016-10-21 09:44 | NUR ---
TO HD PER BED
--- NOTE | 2016-10-21 09:46 | NUR ---
IN DIALYSIS BY BED. WILL CONT. PLAN OF CARE.
[2016-10-21 11:33] LABS: COMPLEMENT C4 20.5 mg/dL (17.4-52.2)
--- NOTE | 2016-10-21 13:15 | NUR ---
RETURN FROM HD PER BED
[2016-10-21 16:58] VITALS: BP 126/62
--- NOTE | 2016-10-21 17:17 | NUR ---
Patient Name: JACKELINE GARZA Encounter No: [id number] : 1940 Primary Insurance: MEDICARE A & B Anticipated DC Date: 10-25-2016 Planned Disposition: Penitentiary Facility External Planned Provider: [facility], MEDICARE REHAB BED DCP follow-up note: CM SPOKE TO PT'S LIVE IN FRIEND IN PT'S ROOM. EDILIA REPORTS SHE DOES NOT THINK PT IS GOING TO BE ABLE TO RETURN HOME WITHOUT SOME TYPE OF REHAB FIRST. CM DISCUSSED REHAB OPTIONS. EDILIA DOES NOT THINK PT CAN TOLERATE THREE HOURS OF PROGRESSIVE THERAPY PER DAY AND DOES NOT THINK SHE CAN TAKE CARE OF PT AT HOME UNTIL HE IS A LITTLE STRONGER. EDILIA WOULD LIKE TO EXPLORE PLACEMENT FOR REHAB AT [facility] IT IS CLOSE TO HOME AND WILL ENABLE HER TO VISIT PT SAFELY EVERY DAY WITHOUT A LONG DRIVE ON A [address]. CHOICE SIGNED. IMPORTANT MESSAGE FROM MEDICARE PROVIDED AND DISCUSSED. ONCE PHYSICAL THERAPY EVALUATION IS COMPLETED, CM TO FAX REFERRAL TO [facility] AT [phone]. PHONE IS [phone] FOR FOLLOW UP. Miki Kirk, CASE MANAGEMENT
--- NOTE | 2016-10-21 17:49 | NUR ---
WITHOUT CHANGES OR DISTRESS NOTED AT THIS TIME. AT SIDE.
[2016-10-21 20:46] VITALS: BP 148/58
[2016-10-21 23:58] VITALS: BP 191/67
--- NOTE | 2016-10-22 01:21 | NUR ---
THIS PM, PATIENT WITH NO COMPLAINTS. MONITOR SHOWS SR @ 62. WILL CONTINUE TO MONITOR.
[2016-10-22 04:11] VITALS: BP 151/65
[2016-10-22 05:45] LABS: BASOPHILS 0 % (0-2); EOSINOPHILS 0 % (0-7); HEMATOCRIT 29.2 % (42.0-54.0); HEMOGLOBIN 9.4 g/dL (13.5-17.5); IMMATURE GRANULOCYTES 0.8 % (0-5); LYMPHOCYTES 2.3 % (15-50); MCH 25.3 pg (26.0-34.0); MCHC 32.2 g/dL (31.0-37.0); MCV 78.7 fL (80.0-100.0); MEAN PLATELET VOLUME 10.3 fL (7.4-10.4); MONOCYTES 3.8 % (2-11); NEUTROPHILS 93.1 % (40-80); PLATELET COUNT 221 10x3/uL (130-400); RBC 3.71 10x6/uL (4.20-6.10); RDW 21.6 % (11.5-14.5); WBC 14.8 10x3/uL (4.8-10.8)
[2016-10-22 06:19] LABS: CALCIUM 7.7 mg/dL (8.5-10.1); CREATININE - SERUM 5.3 mg/dL (0.6-1.3)
[2016-10-22 06:21] LABS: ANION GAP 15.4 mmol/L (8-16); CARBON DIOXIDE 25.8 mmol/L (21.0-32.0); POTASSIUM - SERUM 4.2 mmol/L (3.5-5.1)
--- NOTE | 2016-10-22 06:41 | NUR ---
SLEPT MAJORITY OF NIGHT. SEATING UP ON BS TO DRINK COFFEE. AT BEDSIDE.
--- NOTE | 2016-10-22 09:36 | NUR ---
DISCONNECTED PT FROM HIS BUMEX DRIP TO TRANSPORT HIM TO DIALYSIS. TRANSPORTED VIA BED AND WILL CTM.
[2016-10-22 09:49] VITALS: BP 152/68
[2016-10-22 10:20] LABS: HEPATITIS C ANTIBODY <0.1 (0.0-0.9)
[2016-10-22 11:16] LABS: ANA REFLEX - DIRECT Negative (Negative)
[2016-10-22 12:16] LABS: UPE RAND - ALPHA 1 GLOBULIN 2.5 % (()); UPE RAND - ALPHA 2 GLOBULIN 15.4 % (()); UPE RAND - BETA GLOBULIN 15.6 % (()); UPE RAND - GAMMA GLOBULIN 14.5 % (())
--- NOTE | 2016-10-22 13:50 | NUR ---
PT BACK FROM DIALYSIS SITTING UP ON EDGE OF BED EATING HIS LUNCH WITH HIS . RECONNECTED PT BACK TO BUMEX DRIP INFUSING @10ML/HR VIA L.IJ TRIALYSIS. PT HAS ANBX IVPB INFUSING VIA R.AC PIV ACCESS, DRSG CDI AND SWAB CAPS IN USE. PT DENIES ANY CURRENT PAIN OR FURTHER NEEDS. CL IN REACH, BED IN LOWEST, SIDE RAILS X2. WILL CPOC.
--- NOTE | 2016-10-22 14:55 | NUR ---
D/C PTS R.FA PIV WITH CATHETER TIP FULLY INTACT R/T IT BEING INFILTRATED. R.ARM SLIGHTLY SWOLLEN R/T INFILTRATION, ICE PACK APPLIED.
[2016-10-23] VITALS (7 sets, daily range): BP systolic 140–163; BP diastolic 66–100
--- NOTE | 2016-10-23 01:17 | NUR ---
PATIENT SITTING UP ON BEDSIDE FOR MEDICATION PASS. NO APPARENT DISTRESS. FAMILY AT BEDSIDE.
[2016-10-23 06:38] LABS: BASOPHILS 0 % (0-2); EOSINOPHILS 0 % (0-7); HEMATOCRIT 30.2 % (42.0-54.0); HEMOGLOBIN 9.5 g/dL (13.5-17.5); IMMATURE GRANULOCYTES 0.6 % (0-5); LYMPHOCYTES 3.3 % (15-50); MCH 25.1 pg (26.0-34.0); MCHC 31.5 g/dL (31.0-37.0); MCV 79.9 fL (80.0-100.0); MEAN PLATELET VOLUME 9.8 fL (7.4-10.4); MONOCYTES 4.1 % (2-11); PLATELET COUNT 202 10x3/uL (130-400); RBC 3.78 10x6/uL (4.20-6.10); RDW 21.8 % (11.5-14.5)
[2016-10-23 07:08] LABS: ANION GAP 13.6 mmol/L (8-16); CALCIUM 7.7 mg/dL (8.5-10.1); CARBON DIOXIDE 29.5 mmol/L (21.0-32.0); CREATININE - SERUM 4.3 mg/dL (0.6-1.3); POTASSIUM - SERUM 4.1 mmol/L (3.5-5.1)
--- NOTE | 2016-10-23 08:09 | NUR ---
ASSESSMENT DONE. KARL NEEDS.
--- NOTE | 2016-10-23 09:44 | NUR ---
UP OUT OF BED WITH PT ASSIST. WILL CONT. PLAN OF CARE.
[2016-10-23 10:22] LABS: ANTI-GLOMERULAR BASMENT MEMBRN 3 units (0-20)
--- NOTE | 2016-10-23 14:24 | NUR ---
Nutrition follow-up: Diet: Renal with 1000 cc fluid restriction PO intake ~50% of meals Labs reviewed Wt: 175#; 2-3+ pitting edema +BM Pt reports poor appetite. Will continue to provide food choices and honor food preferences within diet restrictions. RDN will order Nepro with meals. RDN following.
--- NOTE | 2016-10-23 17:58 | NUR ---
WITHOUT CHANGES OR DISTRESS NOTED AT THIS TIME. DENIES NEEDS. AT SIDE.
[2016-10-24] VITALS: BP 153/73
--- NOTE | 2016-10-24 02:29 | NUR ---
THIS PM PATIENT SITTING UP ON BEDSIDE FOR PM MEDS. NO APPARENT DISTRESS. AT BEDSIDE. O2 ON
[2016-10-24 04:00] VITALS: BP 151/69
[2016-10-24 06:54] LABS: BASOPHILS 0 % (0-2); EOSINOPHILS 0 % (0-7); HEMATOCRIT 30.3 % (42.0-54.0); HEMOGLOBIN 9.5 g/dL (13.5-17.5); IMMATURE GRANULOCYTES 0.8 % (0-5); LYMPHOCYTES 3.2 % (15-50); MCH 25.1 pg (26.0-34.0); MCHC 31.4 g/dL (31.0-37.0); MCV 80.2 fL (80.0-100.0); MEAN PLATELET VOLUME 9.6 fL (7.4-10.4); PLATELET COUNT 186 10x3/uL (130-400); RBC 3.78 10x6/uL (4.20-6.10); RDW 22.2 % (11.5-14.5); WBC 18.1 10x3/uL (4.8-10.8)
[2016-10-24 07:11] LABS: ANION GAP 10.2 mmol/L (8-16); CALCIUM 7.8 mg/dL (8.5-10.1); CARBON DIOXIDE 28.6 mmol/L (21.0-32.0); POTASSIUM - SERUM 3.8 mmol/L (3.5-5.1)
[2016-10-24 07:14] LABS: CREATININE - SERUM 5.4 mg/dL (0.6-1.3)
--- NOTE | 2016-10-24 07:40 | NUR ---
PATIENT SITTING UP ON THE BEDSIDE DRINKING A CUP OF COFFEE, AT THE BEDSIDE. PALE YELLOW, CLEAR URINE PATENT TO THE COLLECTION BAG. NO NEEDS NOTED.
[2016-10-24 07:54] VITALS: BP 157/72
--- NOTE | 2016-10-24 09:40 | NUR ---
PATIENT IS RESTING QUIETLY ON HIS LEFT SIDE, COVERS PULLED UP OVER HIS SHOULDER. HIS IS AT THE BEDSIDE AND STATES THAT HE WAS AWAKE MOST OF THE NIGHT. HE SAT UP TO TAKE HIS MEDICATIONS AND SWALLOWED THEM WITHOUT DIFFICULTY. EYES DROPS PER ORDERS. IV HEPARIN AND NS INFUSING PER ORDERS.
[2016-10-24 10:22] LABS: SPE - A/G RATIO 0.9 (0.7-1.7); SPE - ALBUMIN 2.7 g/dL (2.9-4.4); SPE - ALPHA-1 GLOBULIN 0.3 g/dL (0.0-0.4); SPE - BETA GLOBULIN 0.9 g/dL (0.7-1.3); SPE - GAMMA GLOBULIN 0.7 g/dL (0.4-1.8); SPE - M-SPIKE Not Observed g/dL (Not Observed); SPE - TOTAL PROTEIN 5.6 g/dL (6.0-8.5)
--- NOTE | 2016-10-24 10:35 | NUR ---
Patient Name: JACKELINE GARZA Encounter No: [id number] : 1940 Primary Insurance: MEDICARE A & B Anticipated DC Date: 10-25-2016 Planned Disposition: Retirement Facility External Planned Provider: [facility], MEDICARE REHAB BED DCP follow-up note: CM REVIEWED CHART, FAXED REHAB REFERRAL TO [facility], . CM WAITING ADMISSION DETERMINATION FROM [facility]; CM WILL CONTINUE TO MONITOR AND ASSIST NEEDED. Miki Kirk, CASE MANAGEMENT
--- NOTE | 2016-10-24 10:41 | NUR ---
PATIENT RESTING QUIETLY IN HIS BED, EYES CLOSED. AT THE BEDSIDE, NO NEEDS VOICED.
[2016-10-24 12:01] VITALS: BP 148/57
[2016-10-24 16:14] LABS: ANCA - ANTIMYELOPEROXIDASE <9.0 U/mL (0.0-9.0); ANCA - ANTIPROTEINASE 3 <3.5 U/mL (0.0-3.5); ANCA - ATYPICAL <1:20 titer (Neg:<1:20); ANCA - CYTOPLASMIC <1:20 titer (Neg:<1:20); ANCA - PERINUCLEAR <1:20 titer (Neg:<1:20)
[2016-10-24 16:41] VITALS: BP 149/55
[2016-10-24 22:47] VITALS: BP 145/71
[2016-10-25 01:51] VITALS: BP 157/72
[2016-10-25 05:07] LABS: BASOPHILS 0 % (0-2); EOSINOPHILS 0 % (0-7); HEMATOCRIT 28.4 % (42.0-54.0); IMMATURE GRANULOCYTES 0.7 % (0-5); LYMPHOCYTES 2.9 % (15-50); MCH 25.1 pg (26.0-34.0); MCHC 31.7 g/dL (31.0-37.0); MCV 79.1 fL (80.0-100.0); MEAN PLATELET VOLUME 10.4 fL (7.4-10.4); MONOCYTES 2.8 % (2-11); NEUTROPHILS 93.6 % (40-80); PLATELET COUNT 181 10x3/uL (130-400); RBC 3.59 10x6/uL (4.20-6.10); WBC 19.4 10x3/uL (4.8-10.8)
[2016-10-25 05:13] VITALS: BP 162/76
[2016-10-25 05:13] LABS: ANION GAP 15.4 mmol/L (8-16); CALCIUM 7.9 mg/dL (8.5-10.1); CARBON DIOXIDE 25.9 mmol/L (21.0-32.0); CREATININE - SERUM 6.5 mg/dL (0.6-1.3); POTASSIUM - SERUM 4.3 mmol/L (3.5-5.1)
--- NOTE | 2016-10-25 07:10 | NUR ---
RESTING QUIETLY EYES CLOSED RESP UNLABORED NAD NOTED
--- NOTE | 2016-10-25 08:01 | NUR ---
ASSESSMENT COMPLETED.DENIES ANY NEEDS. O2 AT 2 L/M PER NC. RIGHT FA IV WITH ZOFRAN AT 4.7. PEG TUBE WITH PULMOCARE AT 45. AARON CATH TO GRAVITY BAG. DRSG TO THEOAT WHERE TRAC WAS. SR UP WITH CALL LIGHT IN REACH. WILL MONITOR
[2016-10-25 08:25] VITALS: BP 167/71
--- NOTE | 2016-10-25 12:00 | NUR ---
TO DIALYSIS PER BED
[2016-10-25 16:00] VITALS: BP 139/73
--- NOTE | 2016-10-25 19:25 | NUR ---
RECEIVED REPORT FROM DAY NURSE, PT SITTING UP ON SIDE OF BED, AT BEDSIDE, 02-3L, [id number] @10, [id number], CALL LIGHT IN REACH, WILL CONTINUE PLAN OF CARE
[2016-10-25 21:22] VITALS: BP 148/73
[2016-10-26 01:14] VITALS: BP 122/50
--- NOTE | 2016-10-26 04:04 | NUR ---
ASSESSMENT COMPLETE, SEE FLOWSHEET, AT BEDSIDE, CALL LIGHT IN REACH, WILL CONTINUE TO MONITOR
[2016-10-26 05:09] LABS: BASOPHILS 0.1 % (0-2); EOSINOPHILS 0 % (0-7); HEMATOCRIT 27.8 % (42.0-54.0); HEMOGLOBIN 8.7 g/dL (13.5-17.5); LYMPHOCYTES 4.3 % (15-50); MCHC 31.3 g/dL (31.0-37.0); MCV 79.9 fL (80.0-100.0); MEAN PLATELET VOLUME 10.1 fL (7.4-10.4); MONOCYTES 5.5 % (2-11); NEUTROPHILS 89.1 % (40-80); PLATELET COUNT 151 10x3/uL (130-400); RBC 3.48 10x6/uL (4.20-6.10); RDW 21.9 % (11.5-14.5); WBC 16.1 10x3/uL (4.8-10.8)
[2016-10-26 05:23] LABS: ANION GAP 10.8 mmol/L (8-16); CALCIUM 7.8 mg/dL (8.5-10.1); CARBON DIOXIDE 29.1 mmol/L (21.0-32.0); POTASSIUM - SERUM 3.9 mmol/L (3.5-5.1)
[2016-10-26 05:26] LABS: CREATININE - SERUM 4.8 mg/dL (0.6-1.3)
[2016-10-26 06:06] VITALS: BP 167/70
--- NOTE | 2016-10-26 07:42 | NUR ---
ASSESSMENT DONE. DENIES NEEDS
[2016-10-26 08:54] VITALS: BP 167/76
--- NOTE | 2016-10-26 09:04 | NUR ---
UP TO AMBULATE WITH PT ASSIST.
[2016-10-26 12:20] VITALS: BP 158/62
[2016-10-26 17:16] VITALS: BP 137/60
--- NOTE | 2016-10-26 17:33 | NUR ---
WITHOUT CHANGES OR DISTRESS NOTED AT THIS TIME. DENIES NEEDS. AT SIDE.
[2016-10-26 20:00] VITALS: BP 140/57
--- NOTE | 2016-10-26 20:00 | NUR ---
PT RESTING IN BED. AT BEDSIDE. CAF PER TELEMETRY. O2 @ 3L/NC. LEFT JUGULAR TRIALYSIS WITH BUMEX AT 10ML/HR. SEE COMPLETED ASSESSMENT, CPOC.
--- NOTE | 2016-10-26 23:00 | NUR ---
HS MEDS GIVEN. EYEDROPS INSTILLED PER ORDERS. PT CLEAN/DRY AND AT BEDSIDE. CPOC.
[2016-10-27] VITALS: BP 150/66
--- NOTE | 2016-10-27 01:39 | NUR ---
PT RESTING IN BED WITH NO DISTRESS. RESP EVEN/NONLABORED. CAF PER TELEMETRY. BUMEX DRIP AT 10ML/HR INFUSING TO LEFT JUGULAR TRIALYSIS. CALL LIGHT IN REACH. CPOC.
[2016-10-27 04:00] VITALS: BP 160/66
[2016-10-27 06:36] LABS: HEMATOCRIT 27.5 % (42.0-54.0); HEMOGLOBIN 8.5 g/dL (13.5-17.5); MCHC 30.9 g/dL (31.0-37.0); MCV 80.9 fL (80.0-100.0); MEAN PLATELET VOLUME 10.9 fL (7.4-10.4); PLATELET COUNT 144 10x3/uL (130-400); RDW 21.8 % (11.5-14.5); WBC 21.2 10x3/uL (4.8-10.8)
[2016-10-27 06:47] LABS: ANION GAP 11.3 mmol/L (8-16); CALCIUM 7.8 mg/dL (8.5-10.1); CARBON DIOXIDE 29.4 mmol/L (21.0-32.0); CREATININE - SERUM 5.7 mg/dL (0.6-1.3); POTASSIUM - SERUM 3.7 mmol/L (3.5-5.1)
[2016-10-27 06:59] LABS: LYMPHOCYTES 8 % (15-50); MONOCYTES 7 % (2-11); NEUTROPHILS 85 % (40-80); PLATELET ESTIMATE NORMAL; TARGET CELLS 1+
--- NOTE | 2016-10-27 07:56 | NUR ---
ASSESSMENT DONE. DENIES NEEDS.
[2016-10-27 08:38] VITALS: BP 171/82
--- NOTE | 2016-10-27 09:04 | NUR ---
SITTING UP SOB WITH CALL LIGHT IN REACH. AT BS. NO NEEDS VOICED. WILL MONITOR.
[2016-10-27 12:24] VITALS: BP 176/84
[2016-10-27 13:32] LABS: APPEARANCE CLEAR (CLEAR); BACTERIA FEW /hpf (NONE SEEN); BILIRUBIN NEGATIVE (NEGATIVE); COLOR YELLOW (YELLOW); EPITHELIAL CELLS 0-5 /hpf (0-5); GLUCOSE NEGATIVE (NEGATIVE); KETONE NEGATIVE (NEGATIVE); LEUKOCYTE ESTERASE TRACE (NEGATIVE); MUCUS <1+ /lpf (NONE SEEN); NITRITE NEGATIVE (NEGATIVE); PROTEIN NEGATIVE (NEGATIVE); UROBILINOGEN NORMAL (NORMAL)
--- NOTE | 2016-10-27 14:00 | NUR ---
RT ELBOW AREA NOTED TO BE WEEPING. DR ELLIS NOTIFYED, NO NEW ORDERS.
[2016-10-27 16:11] VITALS: BP 155/61
--- NOTE | 2016-10-27 17:24 | NUR ---
AT SIDE. WITHOUT CHANGES OR DISTRESS NOTED AT THIS TIME. DENIES NEEDS.
--- NOTE | 2016-10-27 19:30 | NUR ---
RESUMED CARE OF PT, LYING IN BED WITH EYES CLOSED RESPIRAITONS EVEN AND UNLABORED ON 3LPM VIA NC. AT BEDSIDE, PLAN OF CARE DISCUSSED. WILL BE NPO FOR RENAL BIOPSY IN AM. WILL CONTINUE TO MONITOR. SEE NURSE ASSESSMENT. CALL LIGHT IN REACH.
[2016-10-27 20:00] VITALS: BP 145/67
--- NOTE | 2016-10-27 21:10 | NUR ---
NIGHT MEDS GIVEN, WILL CONTINUE TO MONITOR. CALL LIGHT IN REACH.
[2016-10-28] VITALS (10 sets, daily range): BP systolic 102–184; BP diastolic 54–64
[2016-10-28 05:50] LABS: BASOPHILS 0 % (0-2); EOSINOPHILS 0 % (0-7); HEMATOCRIT 26.2 % (42.0-54.0); IMMATURE GRANULOCYTES 1.1 % (0-5); LYMPHOCYTES 3.3 % (15-50); MCH 24.4 pg (26.0-34.0); MCHC 30.5 g/dL (31.0-37.0); MCV 79.9 fL (80.0-100.0); MEAN PLATELET VOLUME 10.1 fL (7.4-10.4); MONOCYTES 1.7 % (2-11); NEUTROPHILS 93.9 % (40-80); PLATELET COUNT 118 10x3/uL (130-400); RBC 3.28 10x6/uL (4.20-6.10); WBC 16.6 10x3/uL (4.8-10.8)
[2016-10-28 06:13] LABS: ANION GAP 12.2 mmol/L (8-16); CARBON DIOXIDE 29.8 mmol/L (21.0-32.0); CREATININE - SERUM 6.1 mg/dL (0.6-1.3)
[2016-10-28 06:30] LABS: APTT 32.6 SECONDS (22.8-39.4); INR 1.09 (0.85-1.17)
--- NOTE | 2016-10-28 07:44 | NUR ---
ASSESSMENT COMPLETED. TELEMERTY SHOWS SR BBB AT 73. O2 AT 3 L/M PER NC. LEFT SIDED TRIALYSIS, PATENT WITH BUMEX AT 10. AARON CATH PATENT TO BEDSIDE GRAVITY BAG. PT IS NPO FOR KIDNEY BIOPSY. FAMILY AT BEDSIDE. WILL MONITOR
--- NOTE | 2016-10-28 09:30 | NUR ---
BACK FROM BIOPSY. V/S STABLE. COMPUTER BOOKKEEPER SITE DRY AND INTACT. NO BLEEDIN NOTED. WILL MONITOR
--- NOTE | 2016-10-28 09:45 | NUR ---
RESTING QUIETLY RESP UNLABORED NAD NOTED VSS
--- NOTE | 2016-10-28 10:06 | NUR ---
TO DIAYLIS PER BED
--- NOTE | 2016-10-28 13:07 | NUR ---
STILL IN DIAYLIS. V/S POST BIOPSY NOT FINISHED
--- NOTE | 2016-10-28 14:03 | NUR ---
RETURNED FROM DIALYSIS. V/ S STABLE . NO NEEDS VOICED. WILL MONITOR
--- NOTE | 2016-10-28 15:21 | NUR ---
Patient Name: JACKELINE GARZA Encounter No: [id number] : 1940 Primary Insurance: MEDICARE A & B Anticipated DC Date: 10-25-2016 Planned Disposition: INPATIENT REHAB External Planned Provider: [facility] INPATIENT REHAB DCP follow-up note: CM SPOKE TO PT'S SIGNIFICANT OTHER IN ROOM AND DISCUSSED REFERRAL TO [facility]. PT'S SIGNIFICANT OTHER HAS DISCUSSED INPATIENT REHAB WITH THE DOCTOR. CM DISCUSSED INPATIENT REHAB OPTIONS. SHE WOULD LIKE TO KEEP PT HERE AT [place] FOR REHAB IF POSSIBLE SHE THINKS PT WILL DO BETTER QUICKER WITH GOAL TO RETURN HOME. CM FAXED UPDATE TO [facility]. CM SPOKE TO JEN OF INPATIENT REHAB, NOTIFIED OF DESIRE FOR INPATIENT REHAB AT [place]. CM CALLED [facility], OBTAINED ORDER FOR INPATIENT REHAB PRESCREENING. CM WAITING ON INPATIENT SCREENING / ADMISSION DETERMINATION RESULT. Miki Kirk, CASE MANAGEMENT
--- NOTE | 2016-10-28 17:05 | NUR ---
Rehab Note- Acute Rehab Prescreen order received. Visited at length with the patient and Dominique(significant other) about acute rehab. The patient appears to be a good inpatient acute rehab patient when ready for discharge from the acute hospital. Will follow the patient at this time. Thank you for this referral! Dior Navarro RN Clinical Liaison, [facility] Rehab/[facility]
--- NOTE | 2016-10-28 18:13 | NUR ---
UP ON SIDE OF BED.DENIES ANY NEEDS. FAMILY AT BEDSIDE. CALL LIGHT IN REACH WITH SR UP
[2016-10-29 04:05] VITALS: BP 147/67
[2016-10-29 06:14] LABS: BASOPHILS 0.1 % (0-2); EOSINOPHILS 0 % (0-7); HEMOGLOBIN 8.4 g/dL (13.5-17.5); IMMATURE GRANULOCYTES 1.3 % (0-5); LYMPHOCYTES 3.5 % (15-50); MCH 25.2 pg (26.0-34.0); MCHC 31.1 g/dL (31.0-37.0); MCV 81.1 fL (80.0-100.0); MEAN PLATELET VOLUME 10.7 fL (7.4-10.4); MONOCYTES 1.8 % (2-11); NEUTROPHILS 93.3 % (40-80); PLATELET COUNT 112 10x3/uL (130-400); RBC 3.33 10x6/uL (4.20-6.10); RDW 22.3 % (11.5-14.5); WBC 16.7 10x3/uL (4.8-10.8)
[2016-10-29 06:36] LABS: ANION GAP 12.6 mmol/L (8-16); CARBON DIOXIDE 28.7 mmol/L (21.0-32.0); CREATININE - SERUM 5.4 mg/dL (0.6-1.3); POTASSIUM - SERUM 4.3 mmol/L (3.5-5.1)
[2016-10-29 08:16] VITALS: BP 167/71
--- NOTE | 2016-10-29 10:00 | NUR ---
ALERT AND ORIENTED X4. UP OUT OF BED WITH PHYSICAL THERAPY AMBULATING IN [place] WITH WALKER. IN ROOM. DENIES PAIN OR SOB. AARON DRAINING BY GRAVITY SECURED TO INNER THIGH. CONTINUE PLAN OF CARE AND SAFETY PRECAUTIONS. SINUS RHTHYM 70bpm ON TELEMETRY.
[2016-10-29 11:51] VITALS: BP 129/94
--- NOTE | 2016-10-29 16:25 | NUR ---
Patient Name: JACKELINE GARZA Encounter No: [id number] : 1940 Primary Insurance: MEDICARE A & B Anticipated DC Date: 10-25-2016 Planned Disposition: INPATIENT REHAB External Planned Provider: [facility] INPATIENT REHAB DCP follow-up note: CM SPOKE TO JEN OF INPATIENT REHAB, THEY PLAN TO ACCEPT PT WHEN MEDICALLY STABLE, FOR REHAB. PT/SIGNIFICANT OTHER NOTIFIED, IN AGREEMENT WITH DISCHARGE TO INPATIENT REHAB. Miki Kirk, CASE MANGEMENT
[2016-10-29 16:42] VITALS: BP 157/64
--- NOTE | 2016-10-29 18:17 | NUR ---
ALERT AND ORIENTED X4. SLEEPING IN BED. AT BEDSIDE. NO CHANGE. CONTINUE PLAN OF CARE. BED LOCKED AND LOW. CALL LIGHT IN REACH. TWO SIDERAILS UP.
[2016-10-29 20:29] VITALS: BP 160/55
[2016-10-30 00:10] VITALS: BP 176/72
--- NOTE | 2016-10-30 00:13 | NUR ---
THIS PM SAT UP ON BEDSIDE FOR MEDS. NO DISTRESS. AT BEDSIDE. MONITOR SHOWS SR WITH BBB@ 79
[2016-10-30 05:28] VITALS: BP 167/65
[2016-10-30 07:27] LABS: HEMATOCRIT 28.5 % (42.0-54.0); HEMOGLOBIN 8.9 g/dL (13.5-17.5); MCH 25.3 pg (26.0-34.0); MCHC 31.2 g/dL (31.0-37.0); MEAN PLATELET VOLUME 9.5 fL (7.4-10.4); PLATELET COUNT 106 10x3/uL (130-400); RBC 3.52 10x6/uL (4.20-6.10); RDW 22.6 % (11.5-14.5); WBC 21.1 10x3/uL (4.8-10.8)
--- NOTE | 2016-10-30 07:35 | NUR ---
ASSESSMENT DONE. DENIES NEEDS.
[2016-10-30 07:53] VITALS: BP 169/78
[2016-10-30 07:54] LABS: ANION GAP 15.5 mmol/L (8-16); CALCIUM 8.4 mg/dL (8.5-10.1); CARBON DIOXIDE 26.7 mmol/L (21.0-32.0); CREATININE - SERUM 5.9 mg/dL (0.6-1.3); POTASSIUM - SERUM 4.2 mmol/L (3.5-5.1)
[2016-10-30 08:27] LABS: ANISOCYTOSIS 2+; LYMPHOCYTES 2 % (15-50); MONOCYTES 2 % (2-11); NEUTROPHILS 93 % (40-80); PLATELET ESTIMATE DECREASED; POIKILOCYTOSIS 2+
--- NOTE | 2016-10-30 09:55 | NUR ---
RESTS WITH EYES CLOSED. RESP UL ON . AT BS. WILL CONT. PLAN OF CARE.
[2016-10-30 11:47] VITALS: BP 156/67
[2016-10-30 15:59] VITALS: BP 148/65
--- NOTE | 2016-10-30 17:31 | NUR ---
Patient Name: JACKELINE GARZA Encounter No: [id number] : 1940 Primary Insurance: MEDICARE A & B Anticipated DC Date: 10-30-2016 Planned Disposition: Inpatient Rehab External Planned Provider: [facility] INPATIENT REHAB DCP follow-up note: CM RECEIVED ORDER FOR OUTPATIENT DIALYSIS CLINIC ARRANGEMENT, CALLED AND NOTIFIED JESSICA OF [facility] WHO WILL MAKE ARRANGEMENTS AND NOTIFY CM AND PT WHEN COMPLETED. [facility] PLANS TO ACCEPT PT WHEN MEDICALLY STABLE, FOR REHAB. Miki Kirk, CASE MANAGEMENT
--- NOTE | 2016-10-30 18:06 | NUR ---
WITHOUT CHANGES OR DISTRESS NOTED AT THIS TIME.
[2016-10-30 20:00] VITALS: BP 152/65
--- NOTE | 2016-10-30 20:24 | NUR ---
SLEEPING. FAMILY AT BEDSIDE.
[2016-10-31] VITALS: BP 160/72
[2016-10-31 04:00] VITALS: BP 153/60
--- NOTE | 2016-10-31 05:14 | NUR ---
VERY RESTFUL NIGHT. HAS SLEPT WITHOUT ANY ISSUES. FAMILY AT BEDSIDE.
[2016-10-31 06:41] LABS: BASOPHILS 0 % (0-2); EOSINOPHILS 0 % (0-7); HEMATOCRIT 28.2 % (42.0-54.0); IMMATURE GRANULOCYTES 1.2 % (0-5); LYMPHOCYTES 5.4 % (15-50); MCH 25.7 pg (26.0-34.0); MCHC 31.9 g/dL (31.0-37.0); MCV 80.6 fL (80.0-100.0); MEAN PLATELET VOLUME 9.9 fL (7.4-10.4); MONOCYTES 8.9 % (2-11); NEUTROPHILS 84.5 % (40-80); PLATELET COUNT 111 10x3/uL (130-400); RDW 23.7 % (11.5-14.5); WBC 24.2 10x3/uL (4.8-10.8)
[2016-10-31 06:43] LABS: ANION GAP 17.4 mmol/L (8-16); CALCIUM 8.5 mg/dL (8.5-10.1); CARBON DIOXIDE 25.6 mmol/L (21.0-32.0); CREATININE - SERUM 6.6 mg/dL (0.6-1.3)
--- NOTE | 2016-10-31 08:04 | NUR ---
ASSESSMENT DONE. DENIES NEEDS.
[2016-10-31 08:45] VITALS: BP 163/79
--- NOTE | 2016-10-31 09:07 | NUR ---
RESP UL ON . IV PATENT. AT BS. CALL LIGHT IN REACH. WILL MONITOR NEEDS.
--- NOTE | 2016-10-31 09:30 | NUR ---
Rehab Note- The patient has a surgery consult for a HD catheter placement. Will continue to follow the patient at this time. Dior Navarro RN Clinical Liaison, [facility] Rehab/[facility]
--- NOTE | 2016-10-31 11:00 | NUR ---
TO HD PER BED
[2016-10-31 15:25] LABS: UPE RAND - ALBUMIN 50.5 % (()); UPE RAND - ALPHA 1 GLOBULIN 5.7 % (()); UPE RAND - ALPHA 2 GLOBULIN 17.5 % (()); UPE RAND - BETA GLOBULIN 9.3 % (()); UPE RAND - GAMMA GLOBULIN 16.9 % (())
[2016-10-31 16:39] VITALS: BP 158/70
[2016-10-31 20:16] VITALS: BP 165/69
--- NOTE | 2016-10-31 20:54 | NUR ---
DIALYSIS COORDINATOR: Notified last evening by Tian CARTER of patient needing OPHD arrangements. Met with the patient bedside in [facility] briefly, patient requested DC speak with , Dominique Tomlinson. Patient is scheduled for Perm Cath placement on 11/01. Patient is expected to transfer to [facility] Acute Rehab on 11/01 as well. Patient lives in [place]. BMM LANNY
[2016-11-01 00:23] VITALS: BP 156/69
[2016-11-01 04:13] VITALS: BP 157/62
[2016-11-01 06:01] LABS: BASOPHILS 0.1 % (0-2); EOSINOPHILS 0.5 % (0-7); HEMATOCRIT 27.9 % (42.0-54.0); HEMOGLOBIN 8.7 g/dL (13.5-17.5); IMMATURE GRANULOCYTES 1.2 % (0-5); LYMPHOCYTES 8.6 % (15-50); MCH 25.7 pg (26.0-34.0); MCHC 31.2 g/dL (31.0-37.0); MCV 82.3 fL (80.0-100.0); MEAN PLATELET VOLUME 9.7 fL (7.4-10.4); MONOCYTES 5.9 % (2-11); NEUTROPHILS 83.7 % (40-80); PLATELET COUNT 96 10x3/uL (130-400); RBC 3.39 10x6/uL (4.20-6.10); RDW 23.8 % (11.5-14.5)
[2016-11-01 06:10] LABS: WBC 16.9 10x3/uL (4.8-10.8)
[2016-11-01 06:22] LABS: ANION GAP 14.3 mmol/L (8-16); CARBON DIOXIDE 28.5 mmol/L (21.0-32.0); CREATININE - SERUM 5.7 mg/dL (0.6-1.3); POTASSIUM - SERUM 3.8 mmol/L (3.5-5.1)
[2016-11-01 06:28] LABS: PLATELET ESTIMATE DECREASED
[2016-11-01 08:08] VITALS: BP 147/72
--- NOTE | 2016-11-01 08:39 | NUR ---
SLEEPING NPO FOR SURGERY. REFUSES EYE GTTS. WILL CONTINUE TO MONITOR.
--- NOTE | 2016-11-01 10:03 | NUR ---
PREOP FOR OR. HIBCLEANS BATH GIVEN.
--- NOTE | 2016-11-01 13:47 | NUR ---
BACK FROM OR. HEMASPLIT DRESSING BLEEDING BY STITICH. DRESSING CHANGED USING CVL KIT AND STERILE TECHNIQUE. ALSO IJ DRESSING NOT CORRECTLY APPLIED. DRESSING CHANGED TO PROPER CVL AND STERILE TECHNIQUE. MED FOR PAIN PO.
[2016-11-01 15:39] VITALS: BP 148/67
--- NOTE | 2016-11-01 15:46 | NUR ---
HEMASPLIT DRESSING STILL BLEEDING. PRESSURE HELD. DR SALAZAR NOTIFIED AND ORDERS RECEIVED FOR A PRESSURE DRESSING. 4X4S PLACED ON OUT SIDE OF WOUND WITH PD FLUID BAG PLACED. VS GOOD. AWAKE AND ALERT.
--- NOTE | 2016-11-01 16:43 | NUR ---
Patient Name: JACKELINE GARZA Encounter No: [id number] : 1940 Primary Insurance: MEDICARE A & B Anticipated DC Date: 11-02-2016 Planned Disposition: Inpatient Rehab External Planned Provider: [facility] INPATIENT REHAB DCP follow-up note: CM SPOKE TO BEDSIDE NURSE AND DR. BRICEÑO FOR DR. COCHRAN IN REGARDS TO PT'S DISCHARGE TO INPATIENT REHAB, PT IS STILL HAVING BLEEDING FROM NEW HEMOSPLIT AND WILL NOT DISCHARGE TODAY. CM NOTIFIED FRANKO OF [facility] INPATIENT REHAB, PT WILL HAVE TO ADMIT BY 1400 TOMORROW TO INPATIENT REHAB OR A NEW SCREEN WILL NEED TO BE APPROVED BEFORE INPATIENT REHAB COULD ACCEPT. BEDSIDE NURSE NOTIFIED. PT AND SPOUSE NOTIFIED, STILL IN AGREEMENT WITH INPATIENT REHAB. IMPORTANT MESSAGE FROM MEDICARE PROVIDED AND EXPLAINED. JESSICA OF [facility] WHO WILL MAKE ARRANGEMENTS AND NOTIFY CM AND PT WHEN COMPLETED. [facility] PLANS TO ACCEPT PT WHEN MEDICALLY STABLE, FOR REHAB; IF AFTER 1400 HOURS 5-20-17, A NEW REHAB SCREENING WILL NEED TO BE APPROVED PRIOR TO REHAB ACCEPTANCE. Miki Kirk, CASE MANAGEMENT
--- NOTE | 2016-11-01 18:36 | NUR ---
DIALYSIS COORDINATOR: Patient has been accepted by [facility] on a TTS schedule. OPHD unit has been notified that the patinet will not be ready to start for a bit d/t discharging to [facility] Acute Rehab. [place]ERE [place].
[2016-11-01 20:21] VITALS: BP 151/67
[2016-11-02 00:25] VITALS: BP 159/72
[2016-11-02 04:33] VITALS: BP 157/76
[2016-11-02 05:39] LABS: APPEARANCE CLEAR (CLEAR); BACTERIA NONE SEEN /hpf (NONE SEEN); BILIRUBIN NEGATIVE (NEGATIVE); COLOR YELLOW (YELLOW); EPITHELIAL CELLS RARE /hpf (0-5); GLUCOSE NEGATIVE (NEGATIVE); KETONE NEGATIVE (NEGATIVE); LEUKOCYTE ESTERASE NEGATIVE (NEGATIVE); NITRITE NEGATIVE (NEGATIVE); PROTEIN TRACE mg/dL (NEGATIVE); RED CELLS - URINE 0-5 /hpf (0-5); SPECIFIC GRAVITY 1.015 (1.005-1.020); UROBILINOGEN NORMAL (NORMAL); WHITE CELLS - URINE 0-5 /hpf (0-5)
[2016-11-02 05:42] LABS: BASOPHILS 0.1 % (0-2); EOSINOPHILS 0.7 % (0-7); HEMATOCRIT 25.9 % (42.0-54.0); HEMOGLOBIN 8.1 g/dL (13.5-17.5); IMMATURE GRANULOCYTES 0.8 % (0-5); LYMPHOCYTES 7.2 % (15-50); MCHC 31.3 g/dL (31.0-37.0); MCV 83.3 fL (80.0-100.0); MONOCYTES 5.3 % (2-11); NEUTROPHILS 85.9 % (40-80); PLATELET COUNT 83 10x3/uL (130-400); RBC 3.11 10x6/uL (4.20-6.10); RDW 24.4 % (11.5-14.5); WBC 14.3 10x3/uL (4.8-10.8)
[2016-11-02 05:43] LABS: ANION GAP 14.8 mmol/L (8-16); CALCIUM 7.7 mg/dL (8.5-10.1); CARBON DIOXIDE 26.1 mmol/L (21.0-32.0); CREATININE - SERUM 6.1 mg/dL (0.6-1.3); POTASSIUM - SERUM 3.9 mmol/L (3.5-5.1)
[2016-11-02 08:01] VITALS: BP 159/63
--- NOTE | 2016-11-02 09:00 | NUR ---
RESTING QUIETLY RESP UNLABORED DENIES ANY NEEDS AT THIS TIME AT BEDSIDE
[2016-11-02] MEDS ORDERED: PROCRIT/EP10000 UNIT IV (10:34)
[2016-11-02] MEDS ORDERED: ACETAMINOPHEN500 M1 PO (10:34)
[2016-11-02] MEDS ORDERED: HYDROCODONE-APA1 TAB PO (10:35)
[2016-11-02] MEDS ORDERED: RENVELA2.4 GM PO (10:35)
[2016-11-02] MEDS ORDERED: SOLU-MEDRO40 MG/1 M1 IV (10:36)
--- NOTE | 2016-11-02 10:59 | NUR ---
ASSESSMENT COMPLETED. PT IS A DNR. CONFUSED AT TIMES. TELEMERTY SHOWS SR. 02 AT 2 L/M PER NC. LEFT IJ CVL NOTED. TO DIALYSIS PER BED
--- NOTE | 2016-11-02 14:45 | NUR ---
TO REHAB PER WHEEL CHAIR. REPORT GIVEN TO SELMA
[2016-11-02 15:42] VITALS: BP 157/84
== END 2016-11-02 14:45 | DRG 291 ==
LOC: D.M2 15:48
PROVIDERS: Internal Medicine; Internal Medicine Nephrology; ADMIT Family Medicine
PROC: 0T9B70Z Drainage of Bladder with Drainage Device, Via Natural or Artificial Opening (ICD-10-PCS; 2016-10-18)
PROC: 02HV33Z Insertion of Infusion Device into Superior Vena Cava, Percutaneous Approach (ICD-10-PCS; principal; 2016-10-20)
PROC: 5A1D60Z (ICD-10-PCS; 2016-10-20)
PROC: 0TB13ZX Excision of Left Kidney, Percutaneous Approach, Diagnostic (ICD-10-PCS; 2016-10-28)
PROC: 05HM33Z Insertion of Infusion Device into Right Internal Jugular Vein, Percutaneous Approach (ICD-10-PCS; 2016-11-01)
PROC: B543ZZA Ultrasonography of Right Jugular Veins, Guidance (ICD-10-PCS; 2016-11-01)
DX: I13.0 Hypertensive heart and chronic kidney disease with heart failure and stage 1 through stage 4 chronic kidney disease, or unspecified chronic kidney disease (principal); J18.9 Pneumonia, unspecified organism; J96.00 Acute respiratory failure, unspecified whether with hypoxia or hypercapnia; N17.0 Acute kidney failure with tubular necrosis; J44.0 Chronic obstructive pulmonary disease with (acute) lower respiratory infection; J44.1 Chronic obstructive pulmonary disease with (acute) exacerbation; K92.2 Gastrointestinal hemorrhage, unspecified; D62 Acute posthemorrhagic anemia; E87.1 Hypo-osmolality and hyponatremia; B37.81 Candidal esophagitis; E44.0 Moderate protein-calorie malnutrition; J20.9 Acute bronchitis, unspecified; E78.5 Hyperlipidemia, unspecified; F03.90 Unspecified dementia, unspecified severity, without behavioral disturbance, psychotic disturbance, mood disturbance, and anxiety; H35.30 Unspecified macular degeneration; N40.0 Benign prostatic hyperplasia without lower urinary tract symptoms; N18.3 Chronic kidney disease, stage 3 (moderate); I50.9 Heart failure, unspecified; Z66 Do not resuscitate; Z86.73 Personal history of transient ischemic attack (TIA), and cerebral infarction without residual deficits; Z87.891 Personal history of nicotine dependence; Z68.27 Body mass index [BMI] 27.0-27.9, adult

== ENCOUNTER 2016-11-02 15:30 | Inpatient (IN) | payer MEDICARE, BC ==
[~2016-11-02] VITALS: Ht 172.7 cm; Wt 77.2 kg
[~2016-11-02 15:30] MED LIST changes: +ACETAMINOPHEN500 M1 PO; +COREG12.5 MG PO; +COSOPT EYE DROPS5 ML RIGHT EYE; +HYDROCODONE-APA1 TAB PO; +IPRAT-ALBUT 0.5-3 ML UPD; +MAXIFED DM LIQ473 ML PO; +PROCRIT/EP10000 UNIT IV; +PROTONIX40 MG PO; +RENVELA2.4 GM PO; +SOLU-MEDRO40 MG/1 M1 IV; +SYMBICORT 80-10.2 GM INH; +VANCOMYCIN HCL125 MG PO; +XANAX0.25 MG PO; +ZITHROMAX 500M500 MG IV; +ZOSYN 2.25 GM2.25 G1 IV
--- NOTE | 2016-11-02 15:30 | NUR ---
RECIEVED FROM MED 2/WC TO ROOM 1113A;ORIENTED TO ROOM AND CL IN REACH.FAMILY AT BEDSIDE.
[2016-11-02 19:54] VITALS: BP 148/72; BMI 25.1
[2016-11-02 20:00] VITALS: BP 168/70
--- NOTE | 2016-11-02 20:00 | NUR ---
PT IN BED WITH HOB UP FOR COMFORT. TV ON. PT STATES HE IS NOT IN ANY PAIN. PT CODE STATUS IS DNR. DIALYSIS TUES., TH., AND SAT. 02 @ 2L VIA N/C. AARON CATH. BLADDER TRAINING. DAILY WEIGHT. VITALS Q6H. 1500CC GLUID RESTRICTION. CONTINET OF BOWEL. BLIND IN LEFT EYE. POOR VISION IN RIGHT EYE. [place]. LAST BM 11/02/16. LEFT TRIPPLE LUMEN IJ, DRESSING CHANGED BY TIME RN. RIGHT CHEST HEMO SPLIT. BED ALARM ON. BED IN LOWEST POSITION AND CALL LIGHT WITHIN REACH.
--- NOTE | 2016-11-02 21:30 | NUR ---
BED ALARM SOUNDING. CAUGHT PATIENT ATTEMPTIN OOB BETWEEN RAILS. ASSISTED HIM BACK INTO BED. ASKED HIM WHAT HER WAS TRYING TO DO. SAID HE WANTED A DRINK OF WATER. PRIMARY NURSE ARRIVED AND PROVIDED HIM WITH A FRESH CUP OF WATER.
[2016-11-03 00:55] VITALS: BP 170/75
--- NOTE | 2016-11-03 01:30 | NUR ---
PT IN LTING IN BED. RESTING QUIETLY. 02 @ 2L. BED IN LOWEST POSITION AND CALL LIGHT WITHIN REACH.
[2016-11-03 05:37] VITALS: BP 147/57
--- NOTE | 2016-11-03 08:38 | NUR ---
PT AM MEDS ADMINISTERED. PT EATING BREAKFAST, DENIES NEEDS. BED LOW. CL IN REACH.
[2016-11-03 11:47] VITALS: BP 158/72
--- NOTE | 2016-11-03 12:27 | NUR ---
PT EATING LUNCH, DENIES NEEDS. FAMILY AT BEDSIDE.
--- NOTE | 2016-11-03 15:41 | NUR ---
PT RESTING QUIETLY IN BED, DENIES NEEDS. BED LOW. CLIN REACH.
[2016-11-03 17:26] VITALS: BP 145/62
--- NOTE | 2016-11-03 20:00 | NUR ---
PT LYING IN BED. PT HAS NO COMPLAINTS AT THIS TIME. 02 @ 2L. BED IN LOWEST POSITION AND CALL LIGHT WITHINREACH.
--- NOTE | 2016-11-03 23:54 | NUR ---
RIGHT UPPER CHEST HEMO SPLIT DRESSING CHANGED WITHOUT INCIDENT DUE TO OLD DRESSING COMING UP AROUND EDGES. PT TOLERATED PROCEDURE WELL.
--- NOTE | 2016-11-04 | NUR ---
PT LYING IN BED. EYES CLOSED. CHEST RISING AND FALLING. BED IN LOWEST POSITION AND CALL LIGHT WITHIN REACH.
[2016-11-04 00:02] VITALS: BP 152/69
[2016-11-04 05:57] VITALS: BP 158/76
--- NOTE | 2016-11-04 07:32 | NUR ---
RESTING QUIETLY IN BED CALL LIGHT IN REACH
[2016-11-04 09:30] LABS: BASOPHILS 0.1 % (0-2); EOSINOPHILS 0 % (0-7); HEMATOCRIT 29.1 % (42.0-54.0); HEMOGLOBIN 9.4 g/dL (13.5-17.5); IMMATURE GRANULOCYTES 0.4 % (0-5); MCHC 32.3 g/dL (31.0-37.0); MCV 83.6 fL (80.0-100.0); MEAN PLATELET VOLUME 10.7 fL (7.4-10.4); MONOCYTES 5.6 % (2-11); NEUTROPHILS 88.9 % (40-80); RBC 3.48 10x6/uL (4.20-6.10); RDW 23.6 % (11.5-14.5); WBC 13.1 10x3/uL (4.8-10.8)
[2016-11-04 09:32] LABS: PLATELET COUNT 59 10x3/uL (130-400)
[2016-11-04 10:13] LABS: ANION GAP 16.7 mmol/L (8-16); CALCIUM 7.5 mg/dL (8.5-10.1); CARBON DIOXIDE 25.8 mmol/L (21.0-32.0); CREATININE - SERUM 5.6 mg/dL (0.6-1.3); POTASSIUM - SERUM 3.5 mmol/L (3.5-5.1)
--- NOTE | 2016-11-04 10:24 | NUR ---
MORNING MEDICATION GIVEN, PT TOLERATED WELL, WILL CONTINUE TO MONITOR, CALL LIGHT WITHIN REACH.
[2016-11-04 12:08] VITALS: BP 137/69
--- NOTE | 2016-11-04 13:17 | NUR ---
PT SITTING UP IN CHAIR WATCHING TV, CALL LIGHT WITHIN REACH, WILL CONTINUE TO MONITOR,
--- NOTE | 2016-11-04 15:42 | NUR ---
PT RESTING IN BED, RESPIRATIONS EVEN, SIDE RAILS UP X'S 2, BED IN LOW POSITION, CALL LIGHT WITHIIN REACH, WILL CONTINUE TO MONITOR.
--- NOTE | 2016-11-04 17:27 | NUR ---
PT LYING IN BED, PULLED AARON, AARON CATH INTACT, WITHDREW 10CC OF FLUID FROM BULB, PT TOLERATED WELL, WILL CONTINUE TO MONITOR, CALL LIGHT WITHIN REACH.
[2016-11-04 18:05] VITALS: BP 133/72
--- NOTE | 2016-11-04 19:36 | NUR ---
PERFORM SHIFT ASSESSMENT.
--- NOTE | 2016-11-04 21:10 | NUR ---
PT REST IN BED, EYE OPEN, BED LOW, DENIES NEEDS.
[2016-11-05 00:23] VITALS: BP 130/83
--- NOTE | 2016-11-05 00:40 | NUR ---
PT REST QUIETLY IN BED, EYE CLOSE, BED LOW, CALL LIGHT WITHIN REACH.
--- NOTE | 2016-11-05 04:31 | NUR ---
PT REST QUIETLY IN BED, BED LOW, CALL LIGHT WITHIN REACH.
[2016-11-05 06:09] VITALS: BP 148/67
--- NOTE | 2016-11-05 06:33 | NUR ---
PT RESTING QUIETLY, NO S/S OF ACUTE DISTRESS.
--- NOTE | 2016-11-05 06:34 | NUR ---
PT RESTING QUIETLY, NO S/S OF ACUTE DISTRESS.
[2016-11-05 07:27] LABS: BASOPHILS 0.1 % (0-2); HEMATOCRIT 30.6 % (42.0-54.0); HEMOGLOBIN 9.7 g/dL (13.5-17.5); IMMATURE GRANULOCYTES 0.4 % (0-5); LYMPHOCYTES 5.7 % (15-50); MCH 26.7 pg (26.0-34.0); MCHC 31.7 g/dL (31.0-37.0); MCV 84.3 fL (80.0-100.0); MEAN PLATELET VOLUME 10.6 fL (7.4-10.4); MONOCYTES 5.8 % (2-11); RBC 3.63 10x6/uL (4.20-6.10)
[2016-11-05 07:32] LABS: PLATELET COUNT 74 10x3/uL (130-400)
[2016-11-05 07:37] LABS: CALCIUM 7.5 mg/dL (8.5-10.1); CARBON DIOXIDE 25.5 mmol/L (21.0-32.0); CREATININE - SERUM 6.9 mg/dL (0.6-1.3); POTASSIUM - SERUM 3.5 mmol/L (3.5-5.1)
--- NOTE | 2016-11-05 08:15 | NUR ---
PT RESTING IN BED WITH EYES OPEN CALL LIGHT IN REACH NO PROBLEMS WILL MONITER
[2016-11-05 12:59] VITALS: Ht 172.7 cm; Wt 77.2 kg
--- NOTE | 2016-11-05 14:21 | NUR ---
DIALYSIS COORDINATOR: [facility]: Patient has been accepted at [facility] on //Friday @ 10:30am. He will need to be there at 10:00am for his first appointment with 2 forms of ID (one must be a photo ID) and his insurance cards. Please contact me with any questions. Paul
--- NOTE | 2016-11-05 14:26 | NUR ---
PT RESTING IN BED WITH EYES OPEN CALL LIGHT IN REACH NO PROBLEMS WILL MONITER
[2016-11-05 18:35] VITALS: BP 185/75
--- NOTE | 2016-11-05 18:46 | NUR ---
RESTING QUIETLY IN BED CALL LIGHT IN BED
--- NOTE | 2016-11-05 19:40 | NUR ---
PT RECEIVED IN BED WITH EYES OPEN WATCHING TV. REQUEST ASSISTANCE WITH ADJUSTING BLANKET. PT ASSISTED WITH SLIDING UP IN BED. NO OTHER NEEDS MADE KNOWN. CALL LIGHT IN REACH. WILL CONTINUE TO OBSERVE.
--- NOTE | 2016-11-05 22:49 | NUR ---
PT IN BED WITH EYES CLOSED AND CHEST RISING. RECEIVED MEDICATIONS PER MAR WITHOUT DIFFICULYT. NO CONCERNS MADE KNOWN. CALL LIGHT IN REACH. WILL CONTINUE TO OBSERVE.
[2016-11-06 00:15] VITALS: BP 143/87
--- NOTE | 2016-11-06 02:04 | NUR ---
PT IN BED WITH EYES OPEN AND CHEST RISING. PT UP TO SIDE OF BED FREQUENTLY AND ASKING FOR ASSIST WITH BLANKETS EACH TIME. BED ALARM ON. NO OTHER CONCERNS MADE KNOWN. CALL LIGHT IN REACH. WILL CONTINUE TO OBSERVE.
--- NOTE | 2016-11-06 04:40 | NUR ---
PT IN BED WITH EYES OPEN SITTING ON SIDE OF BED. STATES HE IS HAVING DIFFICULTY SLEEPING. NO OTHER CONCERNS MADE KNOWN. CALL LIGHT IN REACH. WILL CONTINUE TO OBSERVE.
[2016-11-06 06:29] VITALS: BP 166/66
--- NOTE | 2016-11-06 07:25 | NUR ---
PT RESTING IN BED WITH EYES OPEN CALL LIGHT IN REACH NO PROBLEMS WILL MONITER
--- NOTE | 2016-11-06 08:00 | NUR ---
SITTING UP EATING BREAKFAST.CL IN REACH.
[2016-11-06 12:00] VITALS: BP 137/76
--- NOTE | 2016-11-06 13:33 | NUR ---
PT RESTING IN BED WITH EYES CLOSED UNLABORED RESPIRATIONS NOTED CALL LIGHT IN REACH WILL MONITER
--- NOTE | 2016-11-06 16:53 | NUR ---
CARE TEAM MEETING: PATIENT ATTENDED MEETING.PLANS ARE FOR PATIENT TO RETURN HOME . TENATIVE DISCHARGE DATE IS 11/15/16. CLARK BEASLEY IN [facility]. IS PATIENT PCP. HE HAS MEALS ON WHEELS , O2, NEBULIZER . [employer] IS [employer]WILL CONTINUE TO FOLLOW WITH PATIENT AND HE WILL BE RA AT NEXT MEETING.
--- NOTE | 2016-11-06 17:37 | NUR ---
PT RESTING IN BED WITH EYES OPEN CALL LIGHT IN REACH NO PROBLEMS WILL MONITER
[2016-11-06 18:37] VITALS: BP 165/67
--- NOTE | 2016-11-06 19:27 | NUR ---
PT RECEIVED IN BED WITH EYES CLOSED AND CHEST RISING. EASILY AROUSED TO VERBAL STIMULI. NO COMPLAINTS OR CONCERNS MADE KNOWN AT THIS TIME. CALL LIGHT IN REACH. WILL CONTINUE TO OBSERVE.
--- NOTE | 2016-11-06 23:00 | NUR ---
PT IN BED WITH EYES OPEN. RECEIVED PM MEDICATIONS PER MAR WITHOUT DIFFICULTY. NO CONCERNS NOTED AT THIS TIME. CALL LIGHT IN REACH.
[2016-11-07 00:30] VITALS: BP 157/66
--- NOTE | 2016-11-07 02:00 | NUR ---
PT IN BED WITH EYES CLOSED AND CHEST RISING. NO SIGN/SYMPTOMS OF DISTRESS NOTED. CALL LIGHT IN REACH.
[2016-11-07 06:03] VITALS: BP 154/65
--- NOTE | 2016-11-07 07:20 | NUR ---
RESTING QUIETLY IN BED.ASSESSMENT COMPLETED.DENIES NEEDS.CL IN EASY REACH,BED IN LOW POSITION.
--- NOTE | 2016-11-07 12:07 | RHP ---
PATIENT: JACKELINE GARZA MEDICAL RECORD: [id number] ACCOUNT: [id number] LOCATION:[facility] [id number] : 40 ADMISSION DATE: 11/02/16 REHABILITATION HISTORY AND PHYSICAL EXAMINATION POST ADMISSION PHYSICIAN EXAMINATION Post-admission Physical Examination and History and Physical DATE OF ADMISSION: 11/02/2016. The patient was seen on that date, but the H&P has not been dictated yet. ADMITTING DIAGNOSIS: Uremic myopathy. HISTORY OF PRESENT ILLNESS: The patient is admitted to inpatient rehab with uremic myopathy, he is a 76-year-old gentleman who was transferred from [place] secondary to shortness of breath and acute renal failure. He was initially admitted with COPD and acute blood loss anemia secondary to gastrointestinal bleed requiring blood transfusion. He was transfused 3 units packed red blood cells, but developed some volume overload. The referring physician stated his BNP was elevated at 30,000. He was given him Lasix and Bumex. His creatinine went from 1.8 to 3.3, which resulted and transferred at [place] for further evaluation and then started on hemodialysis due to acute renal failure and his creatinine slightly improved. His hemodialysis catheter has been placed on November 01. He is legally blind in his left eye and only see images out of his right eye. He lives at home with his significant other and requires assistance with ADLs and independent with mobility. Upon the patient interview, the patient was significantly concerned about his proximal weakness and having difficulty getting from a lying to a sitting and sitting to a stand position. He is currently moderate to max assist with ADLs and moderate to max assist with mobility. He was noted to have poor dietary and poor oral intake and consuming about 50% of his meals. His GFR is 10. He and his significant other are planning on returning home and get back to his prior level of functioning if at all possible, he lives in [place]. COMORBIDITIES: In this patient include congestive heart failure, acute exacerbation of chronic obstructive pulmonary disease, bilateral pleural effusions, pulmonary edema, [id number] renal failure, chronic obstructive pulmonary disease, lower GI bleed, anemia, acute renal insufficiency, hypertension, BPH, macular degeneration, carotid occlusion, pneumonia, dementia, debility, right upper extremity infiltrations secondary to poor venous access, hyponatremia and gastritis. PAST MEDICAL HISTORY: Significant for hypertension, hyperlipidemia, stage III kidney disease, history of CVA, glaucoma, legally blind in his left eye, depression, iron deficiency anemia, bleeding, polyps and macular degeneration. PAST SURGICAL HISTORY: Includes a right carotid endarterectomy and eye surgery. ALLERGIES: No known drug allergies. CURRENT MEDICATIONS: He is on vancomycin 125 mg daily orally. He is on Zosyn 2.25 grams IV q.8 and Zithromax 500 mg IV daily. He also gets Procrit 10,000 units Friday, Friday and Friday, Protonix 40 mg daily, amlodipine 10 mg daily, Cosopt eyedrops 1 drop in his right eye b.i.d. He is on timolol eyedrops on both eyes b.i.d., ____ t.i.d. with meals, DuoNeb updrafts, hydrocodone HISTORY AND PHYSICAL [id number] JACKELINE GARZA as needed for pain, Robitussin-DM p.r.n. cough, Coreg 12.5 mg b.i.d. with meals. He is on Advair HFA ____ two puffs b.i.d., Xanax 0.25 mg q.h.s. p.r.n. and Tylenol 500 mg as needed. HABITS: No alcohol or tobacco use. FAMILY HISTORY: Noncontributory. SOCIAL HISTORY: The patient hopes to return back to [place], get back to his prior level of functioning. REVIEW OF SYSTEMS: GENERAL: Does complain of a little weakness. HEENT: Denies cold, cough, or congestion. CARDIOVASCULAR: Denies chest pain. PHYSICAL EXAMINATION: VITAL SIGNS: Stable, afebrile. GENERAL: Elderly gentleman, in no acute distress, alert upon exam. HEENT: Does have noted decreased and no pupillary reflex on one side. His TMs appear normal. NECK: Supple with no lymphadenopathy. LUNGS: Clear at this time. HEART: Regular rate and rhythm. ABDOMEN: Benign. EXTREMITIES: No clubbing, cyanosis or edema. NEUROLOGIC: Slow to mentate and consistent with some mild dementia. LABORATORY DATA: His white count is 14.3, H&H 8.1 and 25.9, platelet count is 83. Sodium is noted to be 138, potassium 3.9, BUN and creatinine of 99 and 6.1, and blood sugars noted to be 78. His admit UA did have a little bit of blood, but essentially was negative. ASSESSMENT: This is a 76-year-old gentleman, who is admitted to rehab with a working diagnosis of uremic myopathy. The patient has potential to make improvement. We instituted the following multidisciplinary therapies including to, but not limited to physical, occupational, respiratory, speech, nutritional services, prosthetics and orthotics. Given his complex condition and risk for more complications, rehabilitation services cannot be provided at a low level of care such as a penitentiary facility. PLAN: 1. Admit to [facility] rehab for intensive inpatient therapy to include the following disciplines: A. Physical therapy to improve gait, all transfer skills and bed mobility to a modified independent level. B. Occupational therapy to improve activities of daily living to a modified independent level. C. Case management to assist with discharge planning and placement options. D. Nutrition to assist with nutritional needs. E. Rehabilitation nursing to assist in monitoring the patient's underlying medical conditions and to assist with any type of bowel or bladder management. 2. The patient's current medication and medical care will be continued. 3. The patient will be placed on standard fall precautions. 4. The patient's estimated length of stay is approximately 7-10 days. HISTORY AND PHYSICAL [id number] JACKELINE GARZA 5. Discuss this patient during care team staff meeting this week. 6. We will go ahead and follow along with renal and appreciate their help. TRANSINT:[id number] Voice Confirmation ID: [id number] DOCUMENT ID: [id number] ANA ROSA notes whether there has been none or any medical/functional change since admission: - ANA ROSA attests patient continues to be appropriate for IRF: - DEREK ROACH MD at 1207 CC: [id number] DICTATION DATE: 11/04/16 0832 ICT SYSTEMS TEST ENGINEER: 11/04/[address] [facility] [address] [place] [address]
[2016-11-07 12:25] VITALS: BP 138/90
--- NOTE | 2016-11-07 13:00 | NUR ---
TO DIALYSIS VIA BED.
[2016-11-07 20:10] VITALS: BP 133/74
--- NOTE | 2016-11-07 23:04 | NUR ---
PT. IN BED WITH HOB UP FOR COMFORT WITH EYES CLOSED AND RESP. EVEN. O2 ON AT 3L/MIN VIA N/C. PT. HAS BEEN COUGHING MORE THIS EVENING BUT DOESN'T SPIT OUT ANY SECRETIONS. WILL CONTINUE TO MONITOR. CALL LIGHT IS WITHIN REACH FOR ANY NEEDS.
[2016-11-08 00:37] VITALS: BP 160/74
--- NOTE | 2016-11-08 03:01 | NUR ---
PT. IN BED WITH HOB UP FOR COMFORT WITH EYES CLOSED AND RESP. EVEN. O2 ON @ 3L/MIN VIA N/C AND HIS CALL LIGHT IS WITHIN REACH.
[2016-11-08 06:23] VITALS: BP 169/73
[2016-11-08 07:14] LABS: BASOPHILS 0.3 % (0-2); EOSINOPHILS 1.8 % (0-7); HEMOGLOBIN 9.6 g/dL (13.5-17.5); IMMATURE GRANULOCYTES 0.3 % (0-5); LYMPHOCYTES 9.4 % (15-50); MCH 26.4 pg (26.0-34.0); MCV 85.4 fL (80.0-100.0); MEAN PLATELET VOLUME 10.2 fL (7.4-10.4); NEUTROPHILS 81.2 % (40-80); RBC 3.63 10x6/uL (4.20-6.10)
[2016-11-08 07:16] LABS: PLATELET COUNT 128 10x3/uL (130-400)
[2016-11-08 07:30] LABS: ANION GAP 12.2 mmol/L (8-16); CALCIUM 7.9 mg/dL (8.5-10.1); CARBON DIOXIDE 29.2 mmol/L (21.0-32.0); POTASSIUM - SERUM 3.4 mmol/L (3.5-5.1)
--- NOTE | 2016-11-08 07:43 | NUR ---
RESTING QUIETLY IN BED CALL LIGHT IN REACH
--- NOTE | 2016-11-08 10:38 | NUR ---
PATIENT IN REHAB ROOM. WORKING WITH PHYSICAL THERAPIST. DENIES ANY PAIN/DISC AT THIS TIME
--- NOTE | 2016-11-08 12:00 | NUR ---
PATIENT SITTING UP AT THE SIDE OF BED TO EAT LUNCH. Q6 V/S TAKEN
[2016-11-08 12:13] VITALS: BP 142/66
--- NOTE | 2016-11-08 14:26 | NUR ---
PATIENT ALERT/ORIENT WITH FORGETFULNESS. HAS USED CALL LIGHT FOR NEEDS. BED/CHAIR ALARM ON. PITTING EDEMA TO BILATERAL LEGS.
--- NOTE | 2016-11-08 17:57 | NUR ---
PATIENT HAS NO NEEDS AT THIS TIME. SITTING UP AT BEDSIDE TO EAT SUPPER.
[2016-11-08 18:00] VITALS: BP 157/69
--- NOTE | 2016-11-08 19:18 | NUR ---
PT RECEIVED IN BED WITH EYES CLOSED AND CHEST RISING. EASILY AROUSED TO VERBAL STIMULI. NO SIGN/SYMPTOMS OF DISTRESS OR COMPLAINTS OF PAIN. NASAL CANNULA NOTED ON PILLOW AND PLACE BACK ON AT 3LPM. NO OTHER NEEDS OR CONCERNS NOTED. CALL LIGHT IN REACH. WILL CONTINUE TO OBSERVE.
[2016-11-09 00:03] VITALS: BP 136/63
--- NOTE | 2016-11-09 01:24 | NUR ---
PT IN BED WITH EYES CLOSED AND CHEST RISING. NO CONCERNS NOTED AT THIS TIME. CALL LIGHT IN REACH. WILL CONTINUE TO OBSERVE.
--- NOTE | 2016-11-09 03:29 | NUR ---
PT IN BED WITH EYES CLOSED AND CHEST RISING. NO SIGN/SYMPTOMS OF DISTRESS NOTED. CALL LIGHT IN REACH. WILL CONTINUE TO OBSERVE.
[2016-11-09 05:17] VITALS: BP 147/67
--- NOTE | 2016-11-09 08:15 | NUR ---
PT UP EATING BREAKFAST, DENIES NEEDS.
--- NOTE | 2016-11-09 12:15 | NUR ---
PT EATING LUNCH, DENIES NEEDS.
[2016-11-09 12:42] VITALS: BP 149/65
[2016-11-09 18:10] VITALS: BP 149/67
--- NOTE | 2016-11-09 18:12 | NUR ---
PT RECEIVING DIALYSIS IN ROOM. WCTM.
--- NOTE | 2016-11-09 18:30 | NUR ---
RESTING QUIETLY IN BED CALL LIGHT IN REACH
[2016-11-09 19:00] VITALS: BP 175/66
--- NOTE | 2016-11-09 19:26 | NUR ---
PT REC IN BED WITH EYES OPEN WATCHING TV. TREMORS NOTED. NO COMPLAINTS OR CONCERNS MADE KNOWN. CALL LIGHT IN REACH.
[2016-11-10 00:06] VITALS: BP 163/69
--- NOTE | 2016-11-10 00:25 | NUR ---
PT IN BED AT THIS TIME WITH EYES CLOSED AND CHEST RISING. RECEIVED HS MEDICATIONS PER MAR WITHOUT DIFFICULTY. NO OTHER NEEDS OR CONCERNS MADE KNOWN AT THIS TIME. CALL LIGHT IN REACH. WILL CONTINUE TO OBSERVE.
--- NOTE | 2016-11-10 04:37 | NUR ---
PT IN BED WITH EYES CLOSED AND CHEST RISING. EASILY AROUSED. SITTING UP ON SIDE OF BED FOR SHORT PERIODS OF TIME THEN LYING BACK DOWN. NO CONCERNS NOTED. CALL LIGHT IN REACH.
[2016-11-10 06:44] VITALS: BP 158/68
--- NOTE | 2016-11-10 08:10 | NUR ---
PT UP SITTING ON SIDE OF BED EATING BREAKFAST, DENIES NEEDS.
--- NOTE | 2016-11-10 08:32 | NUR ---
SITTING UP EATING BREAKFAST DENIES NEEDS CALL LIGHT IN REACH
--- NOTE | 2016-11-10 09:58 | NUR ---
PT SITTING UP ON SIDE OF BED, DENIES NEEDS. WCTM.
[2016-11-10 11:57] VITALS: BP 146/59
--- NOTE | 2016-11-10 14:07 | NUR ---
PT RESTING QUIETLY IN BED, FAMILY AT BEDSIDE. DENIES NEEDS.
[2016-11-10 18:01] VITALS: BP 156/63
--- NOTE | 2016-11-10 19:20 | NUR ---
PT RECEIVED IN BED WITH EYES OPEN WATCHING TV. RECEIVING O2 VIA NASAL CANNULA AT 3LPM WITH HOB AT 30 DEGREES. NO CONCERNS MADE KNOWN. CALL LIGHT IN REACH. WILL CONTINUE TO OBSERVE.
--- NOTE | 2016-11-10 23:13 | NUR ---
PT IN BED WITH EYES CLOSED AND CHEST RISING. NO SIGN/SYMPTOMS OF DISTRESS NOTED AT THIS TIME. CALL LIGHT IN REACH. WILL CONTINUE TO OBSERVE.
[2016-11-11 00:30] VITALS: BP 146/66
--- NOTE | 2016-11-11 03:41 | NUR ---
PT IN BED WITH EYES CLOSED AND CHEST RISING. YELLING OUT IN SLEEP AT TIMES AND REMOVES NASAL CANNULA. NASAL CANNULA REPLACED. NO CONCERNS NOTED AT THIS TIME. CALL LIGHT IN REACH.
--- NOTE | 2016-11-11 05:32 | NUR ---
PT UP SITTING ON SIDE OF BED. RECEIVED AM MEDICATION PER MAR WITHOUT DIFFCULTY. NO CONCERNS OR REQUEST MADE KNOWN AT THIS TIME. CALL LIGHT IN REACH.
[2016-11-11 05:43] VITALS: BP 152/68
[2016-11-11 07:36] LABS: BASOPHILS 0.4 % (0-2); EOSINOPHILS 1.8 % (0-7); HEMATOCRIT 31.6 % (42.0-54.0); HEMOGLOBIN 9.8 g/dL (13.5-17.5); IMMATURE GRANULOCYTES 0.2 % (0-5); LYMPHOCYTES 12.9 % (15-50); MCH 26.3 pg (26.0-34.0); MCV 84.7 fL (80.0-100.0); MEAN PLATELET VOLUME 10.5 fL (7.4-10.4); MONOCYTES 9.1 % (2-11); NEUTROPHILS 75.6 % (40-80); RBC 3.73 10x6/uL (4.20-6.10); RDW 23.7 % (11.5-14.5); WBC 8.5 10x3/uL (4.8-10.8)
[2016-11-11 07:41] LABS: PLATELET COUNT 179 10x3/uL (130-400)
[2016-11-11 07:52] LABS: ANION GAP 11.5 mmol/L (8-16); CALCIUM 7.9 mg/dL (8.5-10.1); CARBON DIOXIDE 30.2 mmol/L (21.0-32.0); CREATININE - SERUM 6.8 mg/dL (0.6-1.3); PHOSPHOROUS 2.5 mg/dL (2.5-4.9); POTASSIUM - SERUM 3.7 mmol/L (3.5-5.1)
[2016-11-11 08:00] VITALS: BP 158/74
--- NOTE | 2016-11-11 08:16 | NUR ---
SITTING UP EATING BREAKFAST DENIES NEEDS CALL LIGHT IN REACH
--- NOTE | 2016-11-11 09:55 | NUR ---
PATIENT IN REHAB ROOM. WORKING WITH OCCUPATIONAL THERAPIST. DR. Boo ROACH INTO SEE PATIENT. NEW ORDERS RECEIVED.
[2016-11-11 12:17] VITALS: BP 158/74
--- NOTE | 2016-11-11 13:12 | NUR ---
BED/CHAIR ALARM ON. PATIENT IS ALERT/ORIENT WITH FORGETFULNESS.
--- NOTE | 2016-11-11 17:40 | NUR ---
PATIENT SITTING UP ON THE SIDE OF THE BED TO EAT SUPPER. CALL LIGHT WITHIN REACH. BED ALARM ON. V/S Q 6HR.
[2016-11-11 17:57] VITALS: BP 150/62
--- NOTE | 2016-11-11 23:20 | NUR ---
PT IN BED WITH EYES CLOSED AND CHEST RISING. EASILY AROUSED TO VERBAL STIMULI. NO CONCERNS NOTED AT THIS TIME. CALL LIGHT IN REACH.
--- NOTE | 2016-11-12 00:07 | NUR ---
PT IN BED WITH EYES CLOSED AND CHEST RISING. NO SIGN/SYMPTOMS OF DISTRESS NOTED. CALL LIGHT IN REACH.
[2016-11-12 00:35] VITALS: BP 144/70
--- NOTE | 2016-11-12 03:27 | NUR ---
PT IN BED WITH EYES CLOSED AND CHEST RISING. NO CONCERNS NOTED AT THIS TIME. CALL LIGHT IN REACH.
[2016-11-12 05:36] VITALS: BP 154/66
--- NOTE | 2016-11-12 07:10 | NUR ---
INTRODUCED SELF TO PT, PT STATES NO NEEDS AT THIS TIME, WILL CONTINUE TO MONITOR, CALL LIGHT WITHIN REACH.
--- NOTE | 2016-11-12 08:12 | NUR ---
MORNING MEDICATION GIVEN, PT TOLERATED WELL, WILL CONTINUE TO MONITOR, CALL LIGHT WITHIN REACH.
--- NOTE | 2016-11-12 09:50 | NUR ---
ASSISTED PT TO BATHROOM, PT INC OF STOOL, CLEANED PT, MAX ASSISTANCE, WILL CONTINUE TO MONITOR, CALL LIGHT WITHIN REACH.
--- NOTE | 2016-11-12 10:13 | NUR ---
PT IN PT.
[2016-11-12 11:33] VITALS: BP 125/63
--- NOTE | 2016-11-12 11:46 | NUR ---
PT SITTING UP IN CHAIR, PT VITAL TAKEN, WNL, WILL CONTINUE TO MONITOR, CALL LIGHT WITHIN REACH.
--- NOTE | 2016-11-12 13:51 | NUR ---
PT RESTING IN BED, RESPIRATIONS EVEN, BED IN LOW POSITION, SIDE RAILS UP X'S 2, CALL LIGHT WITHIN REACH, WILL CONTINUE TO MONITOR.
--- NOTE | 2016-11-12 15:23 | NUR ---
DIALYSIS COORDINATOR: PATHWAYS: Patient has been accepted at [facility] Tu//Sat @ 10:30am. Chair time will be confirmed at discharged. ([phone]) [place].
--- NOTE | 2016-11-12 15:30 | NUR ---
PT TO DY VIA BED, PT TOLERATED WELL.
--- NOTE | 2016-11-12 17:50 | NUR ---
SITTING UP IN BED.EATING SUPPER.CL IN REACH.
[2016-11-12 17:58] VITALS: BP 165/80
--- NOTE | 2016-11-12 20:00 | NUR ---
PT IN BED WITH HOB UP FOR COMOFRT. EYES CLOSED. CHEST RISING AND FALLING. 02 @ 3L VIA N/C. RIGHT UPPER CHEST HEMOSPLIT. 1500CC FLUID RESTRICTION. PT CODE STATUS IS DNR. BED ALARM ON. BED IN LOWEST POSITION AND CALL LIGHT WITHIN REACH.
[2016-11-12 23:40] VITALS: BP 148/69
--- NOTE | 2016-11-13 | NUR ---
PT IN BED WITH HOB UP FOR COMFORT. RESTING QUIETLY. TV ON. BED IN LOWEST POSITION AND CALL LIGHT WITHIN REACH.
--- NOTE | 2016-11-13 00:20 | NUR ---
RESTING QUIETLY AT THIS TIME. EARLIER, AROUND 2229, SET OFF BED ALARM SITTING UP ON SIDE OF BED. ASSISTED HIM BACK INTO BED AT THAT TIME, REARRANGED HIS COVERS AND REMINDED HIM TO REMAIN IN BED AND CALL FOR ASSIST RATHER THAN GET UP BY HIMSELF.
--- NOTE | 2016-11-13 04:00 | NUR ---
PT LYING IN BED. RESTING QUIETLY. BED IN LOWEST POSITION AND CALL LIGHT WITHIN REACH.
[2016-11-13 05:59] LABS: BASOPHILS 0.8 % (0-2); EOSINOPHILS 1.3 % (0-7); HEMATOCRIT 30.2 % (42.0-54.0); HEMOGLOBIN 9.4 g/dL (13.5-17.5); IMMATURE GRANULOCYTES 0.2 % (0-5); LYMPHOCYTES 16.3 % (15-50); MCHC 31.1 g/dL (31.0-37.0); MCV 83.4 fL (80.0-100.0); MEAN PLATELET VOLUME 10.1 fL (7.4-10.4); MONOCYTES 9.8 % (2-11); NEUTROPHILS 71.6 % (40-80); PLATELET COUNT 193 10x3/uL (130-400); RBC 3.62 10x6/uL (4.20-6.10); RDW 23.2 % (11.5-14.5)
[2016-11-13 06:06] LABS: ANION GAP 12.6 mmol/L (8-16); CALCIUM 8.6 mg/dL (8.5-10.1); CARBON DIOXIDE 27.9 mmol/L (21.0-32.0); CREATININE - SERUM 6.4 mg/dL (0.6-1.3); POTASSIUM - SERUM 3.5 mmol/L (3.5-5.1)
[2016-11-13 06:13] VITALS: BP 157/76
--- NOTE | 2016-11-13 07:51 | NUR ---
SITTING ON SIDE OF BED EATING BREAKFAST.CL IN REACH.
--- NOTE | 2016-11-13 09:26 | NUR ---
PATIENT IS PLEASANTLY CONFUSED/FORGETFULL. BED AND CHAIR ALARM ON. DR. Sánchez ROACH INTO SEE PATIENT. NEW ORDERS RECEIVED.
[2016-11-13 12:00] VITALS: BP 127/55
--- NOTE | 2016-11-13 12:32 | NUR ---
PATIENTS IN ROOM. VISITING. WAITING FOR CARE PLAN MEETING. PATIENT SITTING UP ON THE SIDE OF THE BED TO EAT LUNCH.
--- NOTE | 2016-11-13 13:44 | NUR ---
PATIENT WORKING IN REHAB ROOM WITH OCCUPATIONAL THERAPIST. DENIES ANY PAIN/DISC AT THIS TIME
--- NOTE | 2016-11-13 15:16 | NUR ---
PATIENT HAD AN OT SHOWER YESTERDAY. REFUSED SHOWER TODAY.
--- NOTE | 2016-11-13 15:59 | NUR ---
CENTRAL LINE DRESSING CHANGED TO DIALYSIS PORT. RIGHT UPPER CHEST.
--- NOTE | 2016-11-13 17:00 | NUR ---
CARE TEAM MEETING: SPOUSE AND PATIENT ATTENDED MEETING. TENATIVE DISCHRGE DATE IS 11/15/16. HE WILL HAVE [facility] AND WILL NEED A TUB TRANSFER BENCH.HE WILL HAVE HIS HD AT [facility] ON /./SAT. WITH A 10:30CHAIR TIME. WILL CONTINUE TO FOLLOW WITH PATIENT UNTIL DISCHARGED AND WILL ASSIT WITH NEEDS.
--- NOTE | 2016-11-13 17:31 | NUR ---
PATIENT HELPED WITH MENUE FOR TOMORROW. SANDWICH AND FINGER FOOD FOR SUPPER.
[2016-11-13 17:40] VITALS: BP 156/65
--- NOTE | 2016-11-13 20:00 | NUR ---
PT IN BED WITH HOB UP FOR COMOFRT. EYES CLOSED. CHEST RISING AND FALLING. 02 @ 3L VIA N/C. RIGHT UPPER CHEST HEMOSPLIT, DRESSING C/D/I. 1500CC FLUID RESTRICTION. PT CODE STATUS IS DNR. BED ALARM ON. BED IN LOWEST POSITION AND CALL LIGHT WITHIN REACH.
[2016-11-13 23:54] VITALS: BP 147/65
--- NOTE | 2016-11-14 | NUR ---
PT IN BED WITH HOB UP FOR COMOFRT. EYES OPEN. TV ON. BED IN LOWEST POSITION AND CALL LIGHT WITHIN REACH.
--- NOTE | 2016-11-14 02:50 | NUR ---
IN BED, EYES CLOSED. MOANING AND VOCALIZING IN HIS SLEEP. THIS IS BASELINE BEHAVIOR FOR PATIENT SINCE ADMISSION.
[2016-11-14 06:23] VITALS: BP 165/76
--- NOTE | 2016-11-14 06:46 | NUR ---
RESTING QUIETLY IN BED CALL LIGHT IN REACH
[2016-11-14] MEDS ORDERED: FERROUS SULFAT325 MG PO (09:05)
--- NOTE | 2016-11-14 09:05 | NUR ---
PT AM MEDS ADMINISTERED. PT DENIES NEEDS.
[2016-11-14] MEDS ORDERED: HYDROCODONE-APA1 TAB PO (09:06)
--- NOTE | 2016-11-14 11:10 | NUR ---
PT MEDS ADMINISTERED. PT DENIES NEEDS AT THIS TIME.
[2016-11-14 11:41] VITALS: BP 135/57
--- NOTE | 2016-11-14 14:43 | NUR ---
PT RESTING, EYES CLOSED. BED LOW. CLIN REACH.
[2016-11-14 18:22] VITALS: BP 136/86
--- NOTE | 2016-11-14 19:53 | NUR ---
PT RECEIVED IN BED WITH EYES CLOSED AND CHEST RISING. EASILY AROUSED TO VERBAL STIMULI. NO NEEDS OR CONCERNS MADE KNOWN AT THIS TIME. CALL LIGHT IN REACH. WILL CONTINUE TO OBSERVE.
--- NOTE | 2016-11-14 23:36 | NUR ---
PT IN BED WITH EYES CLOSED AND CHEST RISING. NO CONCERNS NOTED AT THIS TIME. CALL LIGHT IN REACH. WILL CONTINUE TO OBSERVE.
[2016-11-15 00:40] VITALS: BP 156/70
--- NOTE | 2016-11-15 02:30 | NUR ---
PT IN BED WITH EYES CLOSED AND CHEST RISING. YELLS OUT IN SLEEP AT TIMES. NO SIGN/SYMPTOMS OF DISTRESS NOTED. CALL LIGHT IN REACH.
[2016-11-15 05:28] VITALS: BP 153/77
[2016-11-15 06:06] LABS: BASOPHILS 0.5 % (0-2); EOSINOPHILS 1.7 % (0-7); HEMOGLOBIN 9.5 g/dL (13.5-17.5); IMMATURE GRANULOCYTES 0.3 % (0-5); LYMPHOCYTES 18.8 % (15-50); MCHC 31.7 g/dL (31.0-37.0); MEAN PLATELET VOLUME 9.5 fL (7.4-10.4); MONOCYTES 11.9 % (2-11); NEUTROPHILS 66.8 % (40-80); PLATELET COUNT 201 10x3/uL (130-400); RBC 3.66 10x6/uL (4.20-6.10); RDW 23.6 % (11.5-14.5); WBC 6.5 10x3/uL (4.8-10.8)
[2016-11-15 06:18] LABS: ANION GAP 15.7 mmol/L (8-16); CALCIUM 8.6 mg/dL (8.5-10.1); CARBON DIOXIDE 25.4 mmol/L (21.0-32.0)
[2016-11-15 06:21] LABS: CREATININE - SERUM 8.4 mg/dL (0.6-1.3); POTASSIUM - SERUM 4.1 mmol/L (3.5-5.1)
--- NOTE | 2016-11-15 06:22 | NUR ---
PT IN BED WITH EYES OPEN WATCHING TV. AM MEDICATION GIVEN PER MAR WITHOUT DIFFICULTY. CALL LIGHT IN REACH.
--- NOTE | 2016-11-15 07:00 | NUR ---
PT WAS RECEIVED IN BED WITH EYES CLOSED AT THE BEGINNING OF THIS SHIFT. STABLE CONDITION OBSERVED. WILL BE MONITORING HIM THROUGHOUT THIS SHIFT UNTIL HE DISCHARGES TODAY SOMETIME. VITAL SIGNS WNL. CALL LIGHT IS IN REACH.
--- NOTE | 2016-11-15 13:29 | NUR ---
PT WAS TAKEN TO DIALYSIS THIS MORNING IN HIS BED. STABLE CONDITION UPON GOING FOR HIS TREATMENT. HE WAS ALERT AND ORIENTED X 3. NO VERBAL COMPLAINTS.
--- NOTE | 2016-11-15 14:18 | NUR ---
PT IS BACK FROM DIALYSIS AND THE HAS SIGNED HIS DISCHARGE PAPERWORK. ALL PERSONAL BELONGINGS WILL BE TAKEN HOME WITH HIM. HE IS BEING WHEELED OUT TO AWAITING CAR OF HIS DAUGHTERS. STABLE CONDITION OBSERVED.
--- NOTE | 2016-11-15 14:24 | NUR ---
PATIENT DISCHARGING HOME WITH FAMILY.[facility] WILL FOLLOW WITH PATIENT AT HOME. [facility] WILL DELIVER A TUB TRANSFER BENCH. DR. RODAS 11/25/16 @ 10:00. PATIENT CHOICE FORM FOR HOME HEALTH AND [facility] FORM SIGNED, EXPLAINED AND FILED IN CHART. ALL ORDERS HAVE BEEN FAXED WITH [employer]FORMATION RECIEVED
== END 2016-11-15 14:19 | disposition home health service (06) | DRG 91 ==
LOC: D.REHAB 15:30
PROVIDERS: Internal Medicine; ADMIT Emergency Medicine
DX: G72.89 Other specified myopathies (principal); J18.9 Pneumonia, unspecified organism; I13.0 Hypertensive heart and chronic kidney disease with heart failure and stage 1 through stage 4 chronic kidney disease, or unspecified chronic kidney disease; N17.9 Acute kidney failure, unspecified; J44.1 Chronic obstructive pulmonary disease with (acute) exacerbation; J90 Pleural effusion, not elsewhere classified; J81.1 Chronic pulmonary edema; K92.2 Gastrointestinal hemorrhage, unspecified; E87.1 Hypo-osmolality and hyponatremia; N18.9 Chronic kidney disease, unspecified; D64.9 Anemia, unspecified; N40.0 Benign prostatic hyperplasia without lower urinary tract symptoms; H35.30 Unspecified macular degeneration; I65.29 Occlusion and stenosis of unspecified carotid artery; F03.90 Unspecified dementia, unspecified severity, without behavioral disturbance, psychotic disturbance, mood disturbance, and anxiety; R53.81 Other malaise